=== PATIENT | male | born 1990 | race Caucasian/White ===

== ENCOUNTER 2021-07-22 11:11 | Emergency (ER) | payer OTHER, SELFPAY ==
--- NOTE | ~2021-07-22 | XR_ITS ---
EXAMINATION: XR lumbar spine 2-3V EXAM DATE: 07/22/2021 12:09 INDICATION: back pain, radiating down left leg . TECHNIQUE: Lumber spine frontal, lateral, lateral L5-S1 projections for interpretation. There is no prior study for comparison. FINDINGS: The vertebral bodies are aligned in the AP dimension. Mild L4-5 disc disease. Vertebral bod y and disc heights are otherwise well-maintained. There are no acute fractures identified. Sacrum, sa croiliac joints, sacral arcuate lines are intact. Paraspinal soft tissue is unremarkable. Mild lumbar facet arthropathy. No spondylolysis. IMPRESSION: Mild spondylosis. Reviewed, dictated and finalized at location A. S SHOP SUPERVISOR IMPRESSION: Mild spondylosis.
[2021-07-22 11:25] VITALS: BP 135/66; PULSE 79; RESP 17; TEMP 36.4; O2SAT 100
--- NOTE | 2021-07-22 11:49 | ED.BACK ---
HPI - Back Pain/Injury General Chief Complaint: Back Pain/Injury Stated Complaint: back pain Time Seen by Provider: 07/22/21 11:33 History of Present Illness HPI Narrative: 31-year-old male history of low back pain and ruptured disks presents to the emergency room with acute onset of lower back pain that radiates to the left leg. Patient admits to history of sciatica. Patient states pain is burning from gluten distally to his left heel. Denies nausea, vomiting, diarrhea, or saddle anesthesia. Related Data Allergies Allergy/AdvReac Type Severity Reaction Status Date / Time Penicillins Allergy Unknown Verified 07/22/21 11:29 Review of Systems Review of Systems: CONSTITUTIONAL: Denies fever, chills, or sweats. EYES: Denies visual changes, redness, or discharge. ENT: Denies rhinorrhea, congestion, sore throat, or otalgia. CARDIOVASCULAR: Denies chest pain, palpitations, or edema. RESPIRATORY: Denies cough or dyspnea. GASTROINTESTINAL: Denies abdominal pain, nausea, vomiting, or diarrhea. GENITOURINARY: Denies dysuria or hematuria. SKIN: Denies rash or itching. MUSCULOSKELETAL: Reports low back pain. NEUROLOGIC: Denies headache, numbness, dizziness, or weakness. Reports paresthesias left lower extremity PSYCHIATRIC: Denies anxiety or depression. Exam Narrative: GENERAL: Well-appearing, well-nourished, and in no acute distress. HEAD: Normocephalic, atraumatic. EYES: PERRLA and EOMI. ENT: Nares clear, no rhinorrhea or epistaxis. Mucous membranes moist. Oropharynx without tonsillar hypertrophy exudate or other lesions. Bilateral TMs pearly saxena nonbulging NECK: Supple. No adenopathy or masses. No carotid bruits or JVD CHEST: Clear to auscultation. No respiratory distress. No wheezes rales or rhonchi HEART: Regular rate and rhythm. No murmur heard. Normal peripheral pulses. ABDOMEN: Soft, nontender, nondistended, normal active bowel sounds. EXTREMITIES: Normal range of motion. No edema. No lumbar spine tenderness. No midline step-offs. Positive left leg lift. SKIN: Warm, dry, no rash. NEURO: No focal deficits. Alert and oriented x3. PSYCH: Normal mood and affect. Course Course Emergency Course: Lumbar spine plain films were normal for acute abnormality. Patient appears to have sciatica nerve irritation. We will send patient home with steroids and muscle relaxer. Vital Signs Vital signs: Vital Signs Temperature 36.4 C 07/22/21 11:25 Pulse Rate 79 07/22/21 11:25 Respiratory Rate 17 07/22/21 11:25 Blood Pressure 135/66 07/22/21 11:25 Pulse Oximetry 100 07/22/21 11:25 Temperature 36.4 C 07/22/21 11:25 Pulse Rate 79 07/22/21 11:25 Respiratory Rate 17 07/22/21 11:25 Blood Pressure 135/66 07/22/21 11:25 Pulse Oximetry 100 07/22/21 11:25 Discharge Plan Discharge Clinical Impression: Lumbar radiculopathy Sciatica Qualifiers: Laterality: left Qualified Code(s): M54.32 - Sciatica, left side Patient Disposition: Home, Self-Care Condition: Stable Instructions: Antibiotic Form, Sciatica (ED), Acute Low Back Pain (ED) Additional Instructions: Take medications as prescribed. Activity as tolerated. Prescriptions: New prednisone 20 mg tablet 40 mg PO DAILY Qty: 10 RF: 0 methocarbamol 750 mg tablet 750 mg PO TID Qty: 15 RF: 0 naproxen 500 mg tablet 500 mg PO BID Qty: 10 RF: 0 Follow-up/Referrals: PHYSICIAN NOT ON STAFF,NONSTAFF [Primary Care Provider] -
== END 2021-07-22 12:58 | disposition home or self-care (01) ==
PROVIDERS: Emergency Provider Nurse Practitioner Family
DX: M54.16 Radiculopathy, lumbar region (principal); M54.42 Lumbago with sciatica, left side
CPT/HCPCS: 72100; 96372; 99283; J1100

== ENCOUNTER 2024-01-17 15:59 | Emergency (ER) | payer OTHER, SELFPAY ==
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
[2024-01-17 16:19] VITALS: BP 138/89; PULSE 130; RESP 16; TEMP 36.8; O2SAT 99
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
[2024-01-17] MEDS: HYDROcodone/acetaminophen (*CRX) 5-325 MG TABLET 1 TAB PO (22:43)
[2024-01-17 22:48] VITALS: BP 139/76; PULSE 110; RESP 20; O2SAT 100
[2024-01-18 00:56] VITALS: BP 148/95; PULSE 106; RESP 16; TEMP 36.1; O2SAT 100
== END 2024-01-18 01:01 | disposition home or self-care (01) ==
PROVIDERS: Emergency Provider Student in an Organized Health Care Education/Training Program
DX: S19.9XXA Unspecified injury of neck, initial encounter (principal); S49.92XA Unspecified injury of left shoulder and upper arm, initial encounter; M54.9 Dorsalgia, unspecified; M19.012 Primary osteoarthritis, left shoulder; Y03.8XXA Other assault by crashing of motor vehicle, initial encounter
CPT/HCPCS: 70450; 71046; 72125; 72131; 73030; 99284; A4565; A9270

== ENCOUNTER 2024-09-04 08:14 | Emergency (ER) | payer OTHER, SELFPAY ==
--- OUTSIDE RECORDS SUMMARY | 2024-09-04 08:17 | XMS_ITS | Clinical Summary ---
Author Organization [facility] Address [address] [place] [address] Phone Care Team Providers Care Music Teacher Name Role Phone Lulu Briones PAC Primary Care Pro vider Allergies Active Allergy Reactions Criticality Noted Date Comments Penicillin G Other (see Comments) 02/03/2022 Pt states mother always said he was allergic but he doesn't know why so has always avoided it. Medications ketorolac (TORADOL) 10 MG Tablet Take 1 Tablet by mouth every 6 hours as needed for Mild or more severe pain. 15 Tablet 2 Active Additional Information Patient not taking.Reported on 02/04/2023 naloxone HCl (Narcan) 4 MG/0.1ML Liquid CALL 911. SPR CONTENTS OF ONE SPRAYER (0.1ML) INTO ONE NOSTRIL. REPEAT IN 2-3 MIN IF SYMPTOMS OF OPIOID EMERGENCY PERSIST, ALTERNATE NOSTRILS 2 Active HYDROcodone-acet aminophen (NORCO) 5-325 MG TabletIndication s:Back pain with left-sided sciatica Take 1-2 Tablets by mouth every 4 hours as needed for Moderate or more severe pain. 20 Tablet 2 Active HYDROcodone-acet aminophen (NORCO) 5-325 MG TabletIndication s:Acute exacerbation of chronic low back pain Take 1 Tablet by mouth every 4 hours as needed for Moderate or more severe pain. 10 Tablet 3 Active Additional Information Patient not taking.Reported on 01/23/2024 cyclobenzaprine (FLEXERIL) 10 MG Tablet Take 1 Tablet by mouth 3 times daily as needed for Muscle spasms. 30 Tablet 3 Active ibuprofen (MOTRIN) 200 MG Tablet Take 3 Tablets by mouth every 6 hours. 90 Tablet 3 Active ALPRAZolam (XANAX) 0.5 MG Tablet TAKE 1 TABLET BY MOUTH TWICE DAILY NEEDED FOR ANXIETY OR PANIC 3 Active methylPREDNISolo ne (MEDROL DOSPACK) 4 MG Tablet Therapy Pack See product package insert for dosing schedule 21 Tablet 3 Active Additional Information Patient not taking.Reported on 01/23/2024 Active Problems Problem Noted Date Diagnosed Date Chronic low back pain 02/14/2022 Encounters Date Type Department Care Team Description 09/03/2024 9:53 PM CDT - 09/04/2024 3:17 AM CDT [facility] [address] [place] [address] Discharge Disposition: LWBS 09/03/2024 Travel 07/28/2024 Documentation Only [facility] - Internal Medicine - [place] [address] [place] [address] Lulu Briones, [facility] 06/17/2024 10:28 PM MOLECULAR PATHOLOGIST - 06/18/2024 12:12 AM MOLECULAR PATHOLOGIST [facility] [address] [place] [address] Tommy Malhotra MD Acute myofascial strain of lumbar region, initial encounter Discharge Disposition: Discharged to home or Selfcare 06/17/2024 Travel from Last 3 Months Immunizations Immunization Administration Dates Next Due DTAP VACCINE 09/28/1993,10/12/1992 DTP Vaccine 1988,1988,1988 Hepatitis A Vaccine, Pediatric/adolescent, 2 Dose Schedule 12/10/2002 Hepatitis B Vaccine, Pediatric/adolescent 01/18/1999,09/26/1997,08/25/1997 Influenza Vaccine,unspecifie d Formulation 05/05/2003 MMR Vaccine 09/28/1993,08/21/1989 OPV 10/12/1992, 9,1988,1988 TD VACCINE 12/10/2002 TDAP Vaccine 05/29/2018 Family History Relation Name Status Comments Father Alive Mother Social History Tobacco Use Types Packs/Day Years Used Date Smoking Tobacco: Former Cigarettes Smokeless Tobacco: Never Tobacco Cessation:Counseling Given: No Alcohol Use Standard Drinks/Week Comments Not Currently 0 (1 standard drink = 0.6 oz pur e alcohol) social Education Answer Date Recorded What is the highest level of school you have completed or the highest degree you have received? Associate degree: occupational, technical, or vocational program 02/04/2023 Sexually Active Control Partners Comments Not Currently Sex and Gender Information Value Date Recorded Sex Assigned at Not on file Legal Sex Male 10:57 PM CDT Gender Identity Not on file Sexual Orientation Not on file Last Filed Vital Signs Vital Sign Reading Time Taken Comments Blood Pressure 120/79 09/03/2024 9:55 PM CDT Pulse 91 09/03/2024 9:55 PM CDT Temperature 36.9 C (98.5 F) 09/03/2024 9:55 PM CDT Respiratory Rate 18 09/03/2024 9:55 PM CDT Oxygen Saturation 100% 09/03/2024 9:55 PM CDT Inhaled Oxygen Concentration - - Weight 102.1 kg (225 lb) 09/03/2024 9:55 PM CDT Height 195.6 cm (6' 5 ) 09/03/2024 9:55 PM CDT Body Mass Index 26.68 09/03/2024 9:55 PM CDT Plan of Treatment Health Maintenance Due Date Last Done Comments SARS-COV-2 Immunization ( season) 2024 03/16/2021, 02/14/2021 Influenza Immunization (Season Ended) 2025 05/15/2023, 05/05/2003 DTaP/Tdap/Td Immunization (7 - Td or Tdap) 05/29/2028 05/29/2018, 12/10/2002, 09/28/1993, Additional history exists Respiratory Syncytial Virus (RSV) Immunization (Adult) (1 - 1-dose 75+ series) 2063 Hepatitis B Immunization Completed 999, 09/26/1997, 08/25/1997 Hepatitis C Virus (HCV) Screening Completed 05/08/2022, 03/18/2022 Meningococcal Immunization (ACWY) Aged Out No longer eligible based on patient's age to complete this topic Pneumococcal Immunization Combined Aged Out No longer eligible based on patient's age to complete this topic Rotavirus Immunization Aged Out No lo nger eligible based on patient's age to complete this topic Procedures Procedure Name Priority Date/Time Associated Diagnosis Comments XR LUMBAR SPINE 2 OR 3 VIEWS STAT 06/17/2024 10:38 PM MOLECULAR PATHOLOGIST HEPATITIS C ANTIBODY Routine 05/08/2022 1:36 PM MOLECULAR PATHOLOGIST STD exposure from Last 3 Months or Most Recently Relevant to Health Maintenance Results * XR LUMBAR SPINE 2 OR 3 VIEWS (06/17/2024 10:38 PM MOLECULAR PATHOLOGIST) Anatomical Region Laterality Modality Spine, L-spine N/A Digital Radiogra phy 06/17/2024 11:1 1 PM MOLECULAR PATHOLOGIST Impressions 06/17/2024 11:14 PM MOLECULAR PATHOLOGIST IMPRESSION: No acute spinal abnormality. Narrative 06/17/2024 11:14 PM MOLECULAR PATHOLOGIST EXAM DESCRIPTION: XR LUMBAR SPINE 2 OR 3 VIEWS REASON FOR STUDY: Chronic low back pain for the past 4 years, worsening 1 week ago after slipping on ice. TECHNIQUE: 3 radiographic view(s) of the lumbar spine. COMPARISON: 05/11/2022 FINDINGS: ALIGNMENT: Anatomic. VERTEBRAE: Vertebral bodies of normal height. DISCS: Moderate disc space narrowing at L3-4 and there is mild narrowing at L4-5. SOFT TISSUES: Within normal limits. THIS IS AN ELECTRONICALLY VERIFIED FINAL REPORT 06/17/2024 11:11 PM - Electronically signed by August Rosado M.D. KT: [email or web address] Report ID: [id number] Reading Location: [id number] Procedure Note August Rosado MD - 06/17/2024 EXAM DESCRIPTION: XR LUMBAR SPINE 2 OR 3 VIEWS REASON FOR STUDY: Chronic low back pain for the past 4 years, worsening 1 week ago after slipping on ice. TECHNIQUE: 3 radiographic view(s) of the lumbar spine. COMPARISON: 05/11/2022 FINDINGS: ALIGNMENT: Anatomic. VERTEBRAE: Vertebral bodies of normal height. DISCS: Moderate disc space narrowing at L3-4 and there is mild narrowing at L4-5. SOFT TISSUES: Within normal limits. THIS IS AN ELECTRONICALLY VERIFIED FINAL REPORT 06/17/2024 11:11 PM - Electronically signed by August Rosado M.D. KT: KT Report ID: [id number] Reading Location: [id number] IMPRESSION: No acute spinal abnormality. us Tommy Malhotra MD IMG DIAGNOSTIC ORDER PIERO Final Result * HEPATITIS C ANTIBODY (05/08/2022 1:36 PM MOLECULAR PATHOLOGIST) hepatitis C antibody 0.15 <1 S/CO [facility] [id number] B 05/08/2022 10:28 PM MOLECULAR PATHOLOGIST [facility] Comment: Signal/Cutoff ratio < 0.79 is Nondetected Signal/Cutoff ratio 0.80-0.99 is Grayzone Signal/Cutoff ratio > 0.99 is Detected Supplemental assays are recommended if signal/cutoff ratio is >/=1.00. Signal/cutoff ratio result >/= 5.00 is 97% predictive of positivity for recombinant immunoblot assay (RIBA) and will be reported to the [place] Department of Public Health as required. Blood Venipuncture / Unknown 05/08/2022 1:36 PM MOLECULAR PATHOLOGIST 05/08/2022 1:56 PM MOLECULAR PATHOLOGIST us Lulu Briones PAC CHEMISTRY ORDERAB LES Final Result [facility] [address] [place] [address], [place] from Last 3 Months or Most Recently Relevant to Health Maintenance Insurance MEDICAID [place] Care Teams Music Teacher Relationship Specialty Start Date End Date Lulu Briones, SHALINI [address] [place] [address] PCP - General Physician Rf Technician 02/14/22
--- OUTSIDE RECORDS SUMMARY | 2024-09-04 08:17 | XMS_ITS | Clinical Summary ---
Author Organization [facility] Address [address] [place] [address] Care Team Providers Care Retouching Operator Name Role Phone Unavailable Primary Care Provider Unavailabl e Source Comments [facility],non-owned Affiliates and Associated Physician Practices is amultiple site organization consisting of ambulatory clinics and hospital sitesin [place], [place], [place] and [place]. This disclosure is being madepursuant to the Care Everywhere program and may not contain all information available regarding this patient. 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 Gender Identity Not on file Sexual Orientation Not on file Plan of Treatment Health Maintenance Due Date Last Done Comments HIV SCREENING 2003 HEPATITIS C SCREENING 05/02/2006 DTAP/TDAP/TD VACCINES (1 - Tdap) 2007 HEPATITIS B VACCINE (1 of 3 - 19+ 3-dose series) 2007 COVID-19 VACCINE (1 - 2023-2 5 season) 2024 DEPRESSION SCREENING 05/26/2024 INFLUENZA VACCINE (Season Ended) 2025 ZOSTER VACCINE (1 of 2) 2038 HIB VACCINE Aged Out No longer eligi ble based on patient's age to complete this topic HPV VACCINE Aged Out No longer eligi ble based on patient's age to complete this topic MENINGOCOCCAL (Group B) VACC INE SHARED DECISION-MAKING Aged Out No longer eligibl e based on patient's age to complete this topic MENINGOCOCCAL GROUPS A/C/Y/W VACCINE Aged Out No longer eligible b ased on patient's age to complete this topic PNEUMOCOCCAL VACCINE Aged Out No long er eligible based on patient's age to complete this topic Insurance
--- OUTSIDE RECORDS SUMMARY | 2024-09-04 08:17 | XMS_ITS | Data Portability ---
Author Organization [facility] JUAN CARLOSUlises Address [address] [facility] [place] [address] Care Team Providers Care Supervisor Tumbling And Rolling Name Role Phone BOOGIE AGUILAR Primary Care Provider [phone] Assessment No assessment recorded. Plan of Treatment Reminders Order Date Submit Date Provider Last Modified By Organization Details Last Modified Time Details Appointments None recorde d. Lab HIV 1+2 AB + HIV 1 p24 Ag, qualita tive immunoa ssay, serum 2018 019 [facility], [address] [facility], [address], [place], [address], 9 15:14:23 RPR (rapid plasma reagin) , serum 2018 019 [facility], [address], [place], [address], 9 15:14:23 hepatit is panel (A+B+C) , acute, serum 2018 019 [facility], [address], [address], [place], [address], 9 15:14:20 CT + NG RNA, PCR, unspeci fied specime n 2018 019 [facility], [address], [address], [place], [address], 9 15:14:21 hepatit is C Ab, signal- to-cuto ff, serum or plasma 2018 019 [facility], [address], [address], [place], [address], 9 15:14:24 hsv (1+2) igg Ab, serum 2018 019 [facility], [address] [facility] [address], [address], [place], [address], 9 15:14:22 unliste d lab - complia nce drug analysi s, ur 2018 019 [facility], [address] [place] [address], [address], [place], [address], 9 06:18:30 Referral psychia trist referra l [address] [facility], [address] [place], [address], 9 10:30:09 neurosu rgery referra l 2017 018 [facility] (Neurosugery Dept), [address], [place], [address], 9 16:20:34 pain managem ent referra l 2017 018 [facility] Gilbert Bolanos, [address], [place], [address], 9 15:28:51 Procedures None recorde d. Surgeries None recorde d. Imaging MRI, lumbar spine, w/o contras t 2017 [facility], [address] [place], [address], 8 15:43:30 Medication Orders hydroxy zine HCl 50 mg tablet 2018 019 [facility] #[id number], [address] [place], [place], [id number], 9 17:42:05 buspiro ne 10 mg tablet 2018 019 [facility] #[id number], [address] [place], [place], [id number], 9 17:42:04 gabapen tin 600 mg tablet 2018 019 [facility] #69615, [address] [place], [place], [id number], 9 12:07:34 ibuprof en 800 mg tablet 2018 019 [facility] #[id number], [address] [place], [place], [id number], 9 16:14:59 buspiro ne 10 mg tablet 2018 019 [facility] #28885, [facility] [place], [place], [id number], 9 16:12:15 gabapen tin 300 mg capsule 2017 018 [facility] #46448, [address], [place], [place], [id number], 9 12:07:30 acetami nophen 300 mg-code ine 30 mg tablet 2017 018 [facility] #92001, [address], [place], [place], [id number], 9 15:32:31 Tylenol -Codein e #4 300 mg-60 mg tablet 2017 018 [facility], [address], [place], [place], [id number], 0 15:41:37 gabapen tin 600 mg tablet 2017 018 [facility] #86132, [address], [place], [place], [id number], 9 12:07:34 Patient TargetsNo targets recorded. Patient Instructions Encounter Date Encounter Id Patient Instructions Last Modified By Organization Details Last Modified Time 05/04/2018 [id number] When You Want to Lose Weight: Care Instructions jnanney Not available 05/04/2018 16:46:08 A healthy lifestyle: care instructions jnanney Not available 05/04/2018 16:46:08 06/01/2018 [id number] anxiety disorder : care instructions jnanney Not available 06/01/2018 16:11:12 06/08/2018 [id number] fu prn jnanney Not available 06/08 15:20:10 08/27/2018 [id number] anxiety disorder : care instructions jnanney Not available 08/27/2018 17:40:21 Reason for Referral Neurosurgery Referral for Gina mbar radiculopathy Referring Physician: Boogie Aguilar [facility], Encounter Date: 05/04/2018 Pain Management Referral for Lumbar radiculopathy Referring Physician: Boogie Aguilar [facility], Encounter Date: 05/04/2018 Psychiatrist Referral for Ge neralized anxiety disorder Referring Physician: Boogie Aguilar [facility], Encounter Date: 06/01/2018 Results Created Date Observation Date Name Description Value Unit Range Abnormal Flag Note LastModifiedBy Organization Detail LastModifiedTime 06/01/19 19 06/08/2018 drug scree n, urine summary report (summary) FINAL ===== ===== ===== ===== ===== ===== ===== ===== ===== ===== ===== ===== ===== === TOXAS SURE COMP DRUG LINDSAY SIS,U R ===== ===== ===== ===== ===== ===== ===== ===== ===== ===== ===== ===== ===== === Test Resul t Flag Units Drug Prese nt and Decla red for Presc ripti on Verif icati on Aceta minop hen PRESE NT EXPEC JOSE Drug Prese nt not Decla red for Presc ripti on Verif icati on Carbo xy-TH C 106 UNEXP ECTED ng/mg creat Carbo xy-TH C is a metab olite of tetra hydro canna binol (THC) . Sourc e of THC is most commo nly illic it, but THC is also prese nt in a sched uled presc ripti on medic ation . Ibupr ofen PRESE NT UNEXP ECTED Diphe nhydr amine PRESE NT UNEXP ECTED Drug Absen t but Decla red for Presc ripti on Verif icati on Codei ne Not Detec ojse UNEXP ECTED ng/mg creat Gabap entin Not Detec jose UNEXP ECTED ===== ===== ===== ===== ===== ===== ===== ===== ===== ===== ===== ===== ===== === Test Resul t Flag Units Ref Range Creat inine 651 mg/dL >=20 ===== ===== ===== ===== ===== ===== ===== ===== ===== ===== ===== ===== ===== === Decla red Medic ation s: The anastasia ing and inter preta tion on this repor t are based on the follo wing decla red medic ation s. Unexp ected resul ts may arise from inacc uraci es in the decla red medic ation s. Not e: The testi ng scope of this panel inclu terrence these medic ation s: Codei ne (Acet amino phen- Codei ne) Gabap entin Not e: The testi ng scope of this panel does not inclu de small to moder ate amoun ts of these repor jose medic ation s: Aceta minop hen (Acet amino phen- Codei ne) Not e: The testi ng scope of this panel does not inclu de follo wing repor jose medic ation s: Doxyc yclin e ===== ===== ===== ===== ===== ===== ===== ===== ===== ===== ===== ===== ===== === For clini jessica consu ltati on, pleas e call . ===== ===== ===== ===== ===== ===== ===== ===== ===== ===== ===== ===== ===== === Not Available [email or web address] [address] [facility], [place], [address], 06/09/2018 06:18:30 06/01/19 19 06/08/2018 drug scree n, urine pdf . Not Available [employer] [address] [facility], [place], [address], 06/09/2018 06:18:30 08/29/19 19 08/29/2018 hepat itis panel (A+B+ C), acute , serum hep A Ab, IgM Negati ve negati ve Not Available [facility] ([facility]) [address] [facility], [place], [address], 08/31/2018 15:14:20 08/29/19 19 08/29/2018 hepat itis panel (A+B+ C), acute , serum HBsAg screen Negati ve negati ve Not Available [facility] ([facility]) [address] [facility], [place], [address], 08/31/2018 15:14:20 08/29/19 19 08/29/2018 hepat itis panel (A+B+ C), acute , serum hep B core Ab, IgM Negati ve negati ve Not Available [facility] ([facility]) [address] [facility], [place], [address], 08/31/2018 15:14:20 08/29/19 19 08/29/2018 hepat itis panel (A+B+ C), acute , serum hep C virus Ab <0.1 s/co_ ratio 0.0-0. 9 Negat andreas: < 0.8 Indet ermin ate: 0.8 - 0.9 Posit andreas: > 0.9 The CDC recom mends that a posit andreas HCV antib sam resul t be follo wed up with a HCV Nucle ic Acid Ampli ficat ion test (5507 13). Not Available [facility] ([facility]) [address] [facility], [place], [address], 08/31/2018 15:14:20 08/29/1908/31/2018 CT + NG RNA, PCR, unspe cifie d speci men chlamydia trachomatis, ZITA Negati ve negati ve Not Available [facility] ([facility]) [address] [facility], [place], [address], 08/31/2018 15:14:21 08/29/1908/31/2018 CT + NG RNA, PCR, unspe cifie d speci men neisseria gonorrhoeae, ZITA Negati ve negati ve Not Available [facility] ([facility]) [address] [facility], [place], [address], 08/31/2018 15:14:21 08/29/19 19 08/29/2018 hsv (1+2) igg Ab, serum hsv 1 IgG, type spec 5.64 index 0.00-0 .90 above high normal Negat andreas <0.91 Equiv ocal 0.91 - 1.09 Posit andreas >1.09 Note: Negat andreas indic ates no antib odies detec jose to HSV-1 . Equiv ocal may sugge st early infec tion. If clini lorna appro priat e, retes t at later date. Posit andreas indic ates antib odies detec jose to HSV-1 . Not Available [facility] ([facility]) [address] [facility], [place], [address], 08/31/2018 15:14:22 08/29/19 19 08/29/2018 hsv (1+2) igg Ab, serum hsv 2 IgG, type spec <0.91 index 0.00-0 .90 Negat andreas <0.91 Equiv ocal 0.91 - 1.09 Posit andreas >1.09 Note: Negat andreas indic ates no antib odies detec jose to HSV-2 . Equiv ocal may sugge st early infec tion. If clini lorna appro priat e, retes t at later date. Posit andreas indic ates antib odies detec jose to HSV-2 . Not Available [facility] ([facility]) [address] [facility], [place], [address], 08/31/2018 15:14:22 08/29/1908/29/2018 RPR (rapi d plasm a reagi n), serum RPR Non Reacti ve non reacti ve Not Available [facility] ([facility]) [address] [place], [address], 08/31/2018 15:14:22 08/29/1908/29/2018 HIV 1+2 AB + HIV 1 p24 Ag, quali tativ e immun oassa y, serum HIV screen 4TH generation wrfx Non Reacti ve non reacti ve Not Available [facility] ([facility]) [address] [place], [address], 08/31/2018 15:14:23 08/29/1908/29/2018 hepat itis C Ab, signa l-to- cutof f, serum or plasm a HCV Ab <0.1 s/co_ ratio 0.0-0. 9 Not Available [facility] ([facility]) [address] [facility], [place], [address], 08/31/2018 15:14:24 08/29/19 19 08/29/2018 hepat itis C Ab, signa l-to- cutof f, serum or plasm a comment: Commen t Non react andreas HCV antib sam scree n is consi stent with no HCV infec tion, unles s recen t infec tion is suspe cted or other evide nce exist s to indic ate HCV infec tion. Not Available [facility] ([facility]) [address] [facility], [place], [address], 08/31/2018 15:14:24 08/29/19 19 09/03/2018 drug scree n, urine summary report (summary) FINAL ===== ===== ===== ===== ===== ===== ===== ===== ===== ===== ===== ===== ===== === TOXAS SURE COMP DRUG LINDSAY SIS,U R ===== ===== ===== ===== ===== ===== ===== ===== ===== ===== ===== ===== ===== === Test Resul t Flag Units Drug Prese nt and Decla red for Presc ripti on Verif icati on [place] xyzin e PRESE NT EXPEC JOSE Drug Prese nt not Decla red for Presc ripti on Verif icati on Carbo xy-TH C 304 UNEXP ECTED ng/mg creat Carbo xy-TH C is a metab olite of tetra hydro canna binol (THC) . Sourc e of THC is most commo nly illic it, but THC is also prese nt in a sched uled presc ripti on medic ation . Codei ne 87 UNEXP ECTED ng/mg creat Beals deine 108 UNEXP ECTED ng/mg creat Sourc es of codei ne inclu de sched uled presc ripti on medic ation s. Beals deine is an expec jose metab olite of codei ne. [place] codon e 80 UNEXP ECTED ng/mg creat Dihyd rocod eine 41 UNEXP ECTED ng/mg creat Norhy droco done 161 UNEXP ECTED ng/mg creat Sourc es of hydro codon e inclu de sched uled presc ripti on medic ation s. Dihyd rocod eine and norhy droco done are expec jose metab olite s of hydro codon e. Dihyd rocod eine is also avail able as a sched uled presc ripti on medic ation . Gabap entin PRESE NT UNEXP ECTED Aceta minop hen PRESE NT UNEXP ECTED Drug Absen t but Decla red for Presc ripti on Verif icati on Cyclo benza chanell Not Detec jose UNEXP ECTED Ibupr ofen Not Detec jose UNEXP ECTED Ibupr ofen, as indic ated in the decla red medic ation list, is not alway s detec jose even when used as direc jose. Napro xen Not Detec jose UNEXP ECTED ===== ===== ===== ===== ===== ===== ===== ===== ===== ===== ===== ===== ===== === Test Resul t Flag Units Ref Range Creat inine 223 mg/dL >=20 ===== ===== ===== ===== ===== ===== ===== ===== ===== ===== ===== ===== ===== === Decla red Medic ation s: The anastasia ing and inter preta tion on this repor t are based on the follo wing decla red medic ation s. Unexp ected resul ts may arise from inacc uraci es in the decla red medic ation s. Not e: The testi ng scope of this panel inclu terrence these medic ation s: Cyclo benza chanell [place] xyzin e Napro xen Not e: The testi ng scope of this panel does not inclu de small to moder ate amoun ts of these repor jose medic ation s: Ibupr ofen Not e: The testi ng scope of this panel does not inclu de follo wing repor jose medic ation s: Buspi aliya Doxyc yclin e ===== ===== ===== ===== ===== ===== ===== ===== ===== ===== ===== ===== ===== === For clini jessica consu ltati on, pleas e call [phone]. ===== ===== ===== ===== ===== ===== ===== ===== ===== ===== ===== ===== ===== === Not Available [employer] [address] [facility] [address], [place], [address], 09/03/2018 20:08:51 08/29/19 19 09/03/2018 drug scree n, urine pdf . Not Available [employer] [facility] [address] [facility], [place], [address], 09/03/2018 20:08:51 12/06/19 18 12/04/2017 XR, lumba r spine No observ ation record ed. [facility] [address] [place], [address], 12/05/2017 17:49:22 01/01/20 18 12/31/2017 MRI, lumba r spine , w/o contr ast No observ ation record ed. [address], [address], 01/21/2018 12:59:38 Result Notes None recorded. Procedures Surgical History None recorded. Imaging Results Imaging Date Name Status LastModified by Organiz ation Details LastModified Time 12/04/2017 XR, lumbar spine completed [facility] Lauren [address] [place], [address], 12/05/2017 17:49:22 12/31/2017 MRI, lumbar spine, w/o contrast completed [address], [address], 01/21/2018 12:59:38 Procedure Notes None recorded. Medical Equipment None Reported. Allergies Allergen ID Allergen Name Allergen Category Reaction Reaction Severity Criticality Documentation Date Start Date Code Code System Note Provider Name and Address Organization Details Recorded Time 42414 Product containin g penicilli n (product) medicatio n rash Not available Not available 10/09/2016 86036 8001 SNOMED Not Available Not Available Not Available Medications Name Sig Start Date Stop Date Status Note LastModified by Organization Details LastModified Time cyclobenzap rine 10 mg tablet TAKE 1 TABLET BY MOUTH THREE TIMES DAILY active Not Available Not Available No t Available amoxicillin 500 mg capsule 11/19 completed Not Available Not Available Not Available prednisone 10 mg tablet active Not Available Not Available Not Available gabapentin 600 mg tablet TAKE 1 TABLET BY MOUTH THREE TIMES DAILY*PAT IENT NEEDS APPOINTME NT* active Not Available Not Available No t Available clindamycin HCl 300 mg capsule 11/19 completed Not Available Not Available Not Available ibuprofen 800 mg tablet TAKE 1 TABLET BY MOUTH THREE TIMES DAILY active Not Available Not Available No t Available tizanidine 4 mg tablet active Not Available Not Available Not Available hydrocodone 5 mg-acetamin ophen 325 mg tablet 11/19 completed Not Available Not Available Not Available prednisone 20 mg tablet 11/19 completed Not Available Not Available Not Available hydroxyzine HCl 50 mg tablet Take 1 tablet 4 times a day by oral route for 30 days. active Not Available Not Available No t Available acetaminoph en 300 mg-codeine 30 mg tablet Take 1 tablet 4 times a day by oral route for 30 days. 06/01 completed Not Available Not Available Not Available tramadol 50 mg tablet TAKE 1 TABLET BY MOUTH EVERY 8 HOURS 07/05 completed Not Available Not Available Not Available methocarbam ol 750 mg tablet 750 mg by oral route. 11/19 completed Not Available Not Available Not Available doxycycline monohydrate 100 mg capsule 1 bid active Not Available Not Available Not Available buspirone 10 mg tablet Take 1 tablet twice a day by oral route for 30 days. active Not Available Not Available No t Available gabapentin 300 mg capsule Take 1 capsule 3 times a day by oral route for 30 days. 08/27 completed Not Available Not Available Not Available acetaminoph en 300 mg-codeine 60 mg tablet TAKE 1 TABLET BY MOUTH EVERY 8 HOURS NEEDED 07/05 completed Not Available Not Available Not Available methylpredn isolone 4 mg tablets in a dose pack 11/19 completed Not Available Not Available Not Available ketorolac 60 mg/2 mL intramuscul ar solution Inject 2 mL by intramusc ular route. 11/19 completed Not Available Not Available Not Available naproxen 500 mg tablet Take 1 tablet twice a day by oral route for 30 days. active Not Available Not Available No t Available diazepam 5 mg tablet 06/01 completed Not Available Not Available Not Available buspirone 15 mg tablet Take 1 tablet twice a day by oral route for 30 days. 11/19 completed Not Available Not Available Not Available diazepam 05/04 completed Not Available Not Available Not Available Vitals Date Recorded Body height Body mass index (BMI) Body weight Oxygen saturation Oxygen saturation in Arterial blood by Pulse oximetry Heart rate Systolic blood pressure Diastolic blood pressure Provider Name and Address Organization Details Last Updated DateTime 8 195.58 cm 26.4 kg/m2 209626. 1 g 98 % 98 % 116 /min 150 mm[Hg] 80 mm[Hg] Charlette Castillo [place] [facility] 8 18:58:05 Date Recorded Body height Body mass index (BMI) Body weight Oxygen saturation Oxygen saturation in Arterial blood by Pulse oximetry Heart rate Systolic blood pressure Diastolic blood pressure Provider Name and Address Organization Details Last Updated DateTime 8 195.58 cm 25.3 kg/m2 51930.1 7 g 98 % 98 % 84 /min 120 mm[Hg] 86 mm[Hg] Dawn Lebron MA [facility] 8 16:22:26 Date Recorded Body height Body mass index (BMI) Body weight Body temperature Oxygen saturation Oxygen saturation in Arterial blood by Pulse oximetry Heart rate Systolic blood pressure Diastolic blood pressure Provider Name and Address Organization Details Last Updated DateTime 9 195.58 cm 25.3 kg/m2 46063.1 7 g 98.2 [degF] 98 % 98 % 85 /min 124 mm[Hg] 84 mm[Hg] Charlette Castillo MA [facility] 9 15:38:04 Date Recorded Body height Body mass index (BMI) Body weight Oxygen saturation Oxygen saturation in Arterial blood by Pulse oximetry Heart rate Systolic blood pressure Diastolic blood pressure Provider Name and Address Organization Details Last Updated DateTime 9 195.58 cm 26.6 kg/m2 449508. 69 g 98 % 98 % 66 /min 130 mm[Hg] 74 mm[Hg] Dawn Lebron MA [facility] 9 15:01:46 Social History Question Answer Notes LastModified by Organizat ion Details LastModified Time Tobacco Smoking Status Current Some Day Smoker Charlette Castillo MA null, [facility] 06/01/2018 15:33:38 What Is Your Level Of Alcohol Consumption? Moderate Information not available 06/01/2018 What Is Your Level Of Caffeine Consumption? Moderate Information not available 06/01/2018 How Much Tobacco Do You Chew? None Information not available 06/01/2018 What Type Of Diet Are You Following? REGULAR Information not available 06/01/2018 Which Illicit Or Recreational Drugs Have You Used? Parish Information not available 06/01/2018 What Was The Date Of Your Most Recent Tobacco Screening? 06/08/2018 Information not available 12/17/2018 How Much Tobacco Do You Smoke? 1 PPW Information not available 06/01/2018 Sex: Unknown Functional Status None recorded. Mental Status None recorded. Family History Relationship Description Onset Age of this Age Resolved Age Notes LastModified by Organization Details LastModified Time Father Heart disease [email or web address] Not available 09/23 16:05:12 Father Myocardial infarction [email or web address] Not available 16:05:22 Medical History Condition Response Coronary Artery Disease N Other N High Blood Pressure N Atrial Fibrillation N Kidney or Bladder Problems Y Thyroid Problems N GI Problems N Depression N COPD N Blood Clots N Skin Problems N Anemia N Heart Attack ([place]) N Anxiety Disorder N Diabetes N Muscle, Joint, or Bone Problems N Seizures/Epilepsy N Acid Reflux (GERD) N Cancer N Stroke N Asthma N Allergies N High Cholesterol N Hepatitis N Liver Disease N Headaches N Heart Failure N Osteoporosis N Past Encounters Encounter ID Performer Location Encounter Start Date Encounter Closed Date Diagnosis/Indication Diagnosis SNOMED-CT Code Diagnosis ICD10 Code Diagnosis Note [id number] Boogie Aguilar PA-C [facility] [address] [place] [address] 10/09/2016 15:33:20 10/09/2016 17:13:31 Lumbar radiculopathy 305744195 M54.16 [id number] Boogie Aguilar PA-C [facility] [address] [place] [address] 10/31/2016 15:05:08 10/31/2016 15:49:20 Lumbar radiculopathy 202731731 M54.16 Anxiety 51347971 F41.9 [id number] MA [facility] [address] [place] [address] 11/19/2017 17:41:33 11/19/2017 19:17:11 Lumbago with sciatica 788936630 M54.42 Lumbar radiculopathy 128 545833 M54.16 [id number] Boogie Aguilar PA-C [facility] [address] [place] [address] 12/09/2017 18:51:16 12/09/2017 19:13:15 Lumbar radiculopathy 955330903 M54.16 [id number] Boogie Aguilar PA-C [facility] [address] [place] [address] 05/04/2018 15:34:42 05/04/2018 17:01:17 Lumbar radiculopathy 974233545 M54.16 [id number] [address] Le[address] MA [facility] [address] [place] [address] 06/01/2018 15:17:45 06/01/2018 16:39:01 Lumbar radiculopathy 424471440 M54.16 Accidental drug overdose 75930724 T50.901A Generalize d anxiety disorder 51416257 F41.1 Anxiety 69077747 F41.1 [id number] Boogie Aguilar PA-C [facility] [address] [place] [address] 06/08/2018 14:52:29 06/08/2018 15:30:14 Laceration of hand 733560774 S61.411D [id number] Boogie Aguilar PA-C [facility] [address] [place] [address] 08/27/2018 17:29:53 08/28/2018 15:19:41 Generalized anxiety disorder 58742125 F41.1 Venereal d isease screening 787360211 Z11.3 Health Concerns Section Related Observation LastModified by Organization Detai ls LastModified Time None Recorded Concern Status LastModified by Organization Details LastModified Time None Recorded Advance Directives Directive None Recorded Payers Encounter Date Sequence Insurance Name Policy Number Policy Cheng Covered Member ID Cheng Member ID Guarantor Name 12/09/2017 1 *SELF PAY* Alex jensen Canseco 05/04/2018 1 *SELF PAY* Alex jensen Canseco 06/01/2018 1 *SELF PAY* Alex jensen Canseco 06/08/2018 1 *SELF PAY* Alex Canseco 08/27/2018 1 [facility] (MEDICAID HMO) [id number] Bart Canseco [id number] Bart Canseco Notes Date Note Type Note Provider Name and Address Organization Details Recorded Time 12/09/2017 text/html tramadol not working for pain. physical therapy failed. Boogie Aguilar PA-C Attn: [address] [place], [address], [facility] 12/09/2017 19:13:21 05/04/2018 text/html follow up on sciatic pain never saw results of testing Boogie Aguilar PA-C Attn: [address] [place], [address], [facility] 05/04/2018 16:49:50 06/01/2018 text/html Went out 6 and got aggravated and unsure why. Was taking tylenol, drinking EtOH, and smoking a vape pen from a person at the bar. Unsure who that person was, but his name is Connor. States he has never gotten this aggravated before. States 2 days later was out in [employer] and again using the same vape pen - states he lost it and does not remember a lot of it, but said and did things he never would have done. Believes the vape pen may have been laced with something. Mother believes he has an anxiety issue prior to this episode, both social and general. Dawn Lebron [facility], [facility] 06/01/2018 17:36:25 06/08/2018 text/html needs sutures removed from rt hand. 10 days Boogie Aguilar PA-C Attn: Accounting,[address] [place], [address], [facility] 06/08/2018 15:25:07 08/27/2018 text/html see previous note. history of anxiety. no threats of self harm. does say he is disraught. emotional. thinks about it and gets amped up. he is freaked out because he may have been exposed to STDs. Boogie Aguilar PA-C Attn: Accounting,[address] [place], [address], [facility] 08/27/2018 17:46:20
--- OUTSIDE RECORDS SUMMARY | 2024-09-04 08:17 | XMS_ITS | Encounter Summary ---
Author Organization [facility] Address [address] [place] [address] Phone Care Team Providers Care Robotics Engineer Name Role Phone Lulu Briones PAC Primary Care Pro vider Reason for Visit * Reason Comments Back Pain Encounter Details Date Type Department Care Team (Late st Contact Info) Description 09/03/2024 9:53 PM CDT - 09/04/2024 3:17 AM CDT Emergency [facility] [address] [place] [id number] Discharge Disposition: LWBS Social History Tobacco Use Types Packs/Day Years Used Date Smoking Tobacco: Former Cigarettes Smokeless Tobacco: Never Alcohol Use Standard Drinks/Week Comments Not Currently [...] on file Sexual Orientation Not on file documented as of this encounter Last Filed Vital Signs Vital Sign Reading [...] Mass Index 26.68 09/03/2024 9:55 PM CDT documented in this encounter Medications at Time of Discharge ALPRAZolam (XANAX) 0.5 MG Tablet TAKE 1 TABLET BY MOUTH TWICE DAILY NEEDED FOR ANXIETY OR PANIC 01/22/2023 cyclobenzaprine (FLEXERIL) 10 MG Tablet Take 1 Tablet by mouth 3 times daily as needed for Muscle spasms. 30 Tablet 10/12/2022 HYDROcodone-acetam inophen (NORCO) 5-325 MG TabletIndications: Acute exacerbation of chronic low back pain Take 1 Tablet by mouth every 4 hours as needed for Moderate or more severe pain. 10 Tablet 10/12/2022 HYDROcodone-acetam inophen (NORCO) 5-325 MG TabletIndications: Back pain with left-sided sciatica Take 1-2 Tablets by mouth every 4 hours as needed for Moderate or more severe pain. 20 Tablet 05/21/2022 ibuprofen (MOTRIN) 200 MG Tablet Take 3 Tablets by mouth every 6 hours. 90 Tablet 10/12/2022 ketorolac (TORADOL) 10 MG Tablet Take 1 Tablet by mouth every 6 hours as needed for Mild or more severe pain. 15 Tablet 02/10/2022 methylPREDNISolone (MEDROL DOSPACK) 4 MG Tablet Therapy Pack See product package insert for dosing schedule 21 Tablet 02/04/2023 naloxone HCl (Narcan) 4 MG/0.1ML Liquid CALL 911. SPR CONTENTS OF ONE SPRAYER (0.1ML) INTO ONE NOSTRIL. REPEAT IN 2-3 MIN IF SYMPTOMS OF OPIOID EMERGENCY PERSIST, ALTERNATE NOSTRILS 02/14/2022 documented as of this encounter ED Notes * Fifi Chinchilla RN - 09/04/2024 3:16 AM CDT Called for patient to bring him to an ED room x2. Patient did not present. Per meter repairer helper, patient seen leaving ED. Patient left without being seen. * Sumaya Uriostegui RN - 09/03/2024 9:57 PM CDT Pt ambulatory to ED for complaint of right lower back pain that goes down his right leg. Pt denies any known injury, but does have a chronic back pain problem. Pt states that he usually sees his PCP who prescribes a muscle relaxer and pain med for the flare up episodes. Pt was unable to wait to seePCP due to pain. Pt denies any urinary symptoms. VSS. No distress noted. Pt updated on plan of care. documented in this encounter Plan of Treatment Not on file documented as of this encounter Visit Diagnoses Not on filedocumented in this encounter Care Teams Robotics Engineer Relationship Specialty Start Date End Date Lulu Briones PAC [address] [place] [address] PCP - General Physician Blood Bank Manager 02/14/22 documented as of this encounter
--- OUTSIDE RECORDS SUMMARY | 2024-09-04 08:17 | XMS_ITS | Continuity of Care Document ---
Author Organization [facility] Address [address] [place] [address] Phone Care Team Providers Care Ux Specialist Name Role Phone Lorna Corrales PT Unavailable Unavailable Procedures Procedure Date Therapeutic Activities Neuromuscular Re-Ed Therapeutic Exercise Manual Therapy Therapeutic Activities Neuromuscular Re-Ed Therapeutic Exercise Manual Therapy Therapeutic Activities Neuromuscular Re-Ed Therapeutic Exercise Manual Therapy Therapeutic Activities Neuromuscular Re-Ed Therapeutic Exercise Manual Therapy Hot or Cold Pack Therapeutic Activities Neuromuscular Re-Ed Therapeutic Exercise Hot or Cold Pack Manual Therapy PT Evaluation Moderate Complexity Therapeutic Activities Neuromuscular Re-Ed Therapeutic Exercise Manual Therapy Advance Directives Directive Yes / No Effective Date File Name No Information Encounters Encounter Description Practice Location Reason(s) For Visit Diagnoses Date Provider Providers Copied on Encounter [facility], [address], [place], [place], [id number], [place] tel:[phone] [place] No Information Savanna Rothman. . Referring Provider: [address], [place], [address]. tel:[phone], [id number], tel:[phone] [place] No Information Ashley Harrell. . Referring Provider: [address], [place], [address]. tel:[phone] [facility] [address], [id number], tel:[phone] [place] No Information Ashley Harrell. . Referring Provider: [address], [place], [address]. tel:[phone], [id number], tel:[phone] [place] No Information May Frost. [address] [place] [address], [address], [place], [facility], . tel:[phone] Referring Provider: [address], [place], [address]. tel:[phone] [facility] [address] [place] [address], [id number], tel:[phone] [place] No Information Savanna Rothman. . Referring Provider: [address], [place], [address]. tel:[phone], [id number], tel:[phone] [place] No Information Ashley Harrell. . Referring Provider: [address], [place], [address]. tel:[phone] Family History Family Member Type Diagnosis Age At Onset No Information Payers Payer name Insurance type Covered libertarian ID [place] jo[address] [place] 00 Social History Type Description Quantity Date Captured Comments Sex Male Smoking Status No Information Chief Complaint And Reason For Visit No Information Reason For Referral Reason For Referral No Information History Of Present Illness Encounter Date Complaint History Of Prese nt Illness No Information Functional Status Date Functional Assessmen t No Information Instructions Date Instruction Additional Infor mation No Information Assessments Type Assessment Date No Information Patient Care Teams Name Effective Dates (start - stop) Status Members No Information
--- OUTSIDE RECORDS SUMMARY | 2024-09-04 08:17 | XMS_ITS | Encounter Summary ---
Author Organization [employer] Care Team Providers Care Filter Tank Tender Name Role Phone Lulu Briones PAC Primary Care Pro vider Encounter Details Date Type Department Care Team (Latest Contact Info) Description 09/03/2024 Travel Social History Tobacco Use Types Packs/Day Years [...] on file documented as of this encounter Plan of Treatment Not on file documented as of this encounter Visit Diagnoses Not on filedocumented in this encounter Care Teams Filter Tank Tender Relationship Specialty Start Date End Date Lulu Briones PAC [address] [place] [address] PCP - General Physician Counsellors 02/14/22 documented as of this encounter
--- OUTSIDE RECORDS SUMMARY | 2024-09-04 08:17 | XMS_ITS | Clinical Summary ---
Author Organization [facility] Address [address] [place] [address] Care Team Providers Care Bookkeeper Assistant Name Role Phone Unavailable Primary Care Provider Unavailabl e Allergies Active Allergy Reactions Criticality Noted Date Comments Penicillins Other (See Comments) 02/03/2022 Pt states mother always said he was allergic but he doesn't know why so has always avoided it. Medications ibuprofen (MOTRIN) 200 mg tablet Take 600 mg by mouth every 6 hours as needed. 3 Active oxyCODONE (ROXICODONE) 5 mg tabletIndicatio ns:Labral tear of shoulder, left, initial encounter Take 1 Tablet (5 mg) by mouth every 4 hours as needed for Pain. Max Daily Amount Per Insurance: 4 Tablets 20 Tablet 08/04/2024 10:35 AM CDT 5 Active docusate sodium (Dulcolax Stool Softener, dss,) 100 mg capsule Take 1 Capsule (100 mg) by mouth 2 times daily. 30 Capsule 08/04/2024 10:35 AM CDT 5 Active ondansetron (ZOFRAN ODT) 4 mg Tablet, Rapid Dissolve Dissolve 1 Tablet (4 mg) on top of tongue, then swallow with saliva every 8 hours as needed for Nausea/Vomiti ng. 30 Tablet 08/04/2024 10:35 AM CDT 5 Active acetaminophen (TYLENOL) 500 mg tablet Take 1 Tablet (500 mg) by mouth every 6 hours as needed for Pain. 60 Tablet 1 08/04/2024 10:35 AM CDT 5 Active traMADoL (ULTRAM) 50 mg tabletIndicatio ns:S/P shoulder surgery Take 1 Tablet (50 mg) by mouth every 6 hours as needed for Pain. 30 Tablet Active gabapentin (Neurontin) 300 mg capsule Take 1 Capsule (300 mg) by mouth nightly as needed for Pain. 21 Capsule 08/04/2024 10:35 AM CDT 5 08/26/19 25 Active Problems Problem Noted Date Diagnosed Date Biceps tendonitis on left 07/19/2024 Encounters Date Type Department Care Team Description 08/16/2024 3:05 PM CDT Ancillary Procedure [facility] [address] [facility] [address] [place] [address] Kaleigh Bowles PA-C S/P shoulder surgery 08/16/2024 3:00 PM CDT Office Visit [facility] [address] [facility] [address] [place] [address] Kaleigh Bowles PA-C S/P shoulder surgery (Primary Dx) 08/06/2024 Orders Only [facility] [address] [address] Scanning, Provider 08/04/2024 8:45 AM CDT - 08/04/2024 9:45 AM CDT Surgery [facility] Operating Room [address] [place] [address] Tommy Mallory MD Left shoulder arthroscopy with debridement,SLAP repair, biceps tenodesis 08/04/2024 8:35 AM CDT Anesthesia Event [facility] Operating Room [address] [place] [address] Brock Renae MD Aridge, Della Louise, NP 08/04/2024 6:33 AM CDT - 08/04/2024 11:30 AM CDT Hospital Encounter [facility] Pre Procedure Phase II [address] [place] [address] Tommy Mallory MD Biceps tendonitis on left Discharge Disposition: Home or Self Care 08/03/2024 Orders Only [facility] at the [facility] [address] [place] [phone] Kaleigh Bowles PA-C Biceps tendonitis on left (Primary Dx) 07/23/2024 Prep for Surgery [facility] [id number] [place] [address] [address] [place] [phone] Tommy Mallory MD Labral tear of shoulder, left, initial encounter (Primary Dx) 07/20/2024 External Device Data STL ABSTRACTION Provider, Abstract 07/20/2024 External Device Data STL ABSTRACTION Provider, Abstract 07/20/2024 External Device Data STL ABSTRACTION Provider, Abstract 07/19/2024 1:45 PM HAM ROLLING MACHINE OPERATOR Office Visit [address] [place] [phone] Tommy Mallory MD Left shoulder pain, unspecified chronicity (Primary Dx); Labral tear of shoulder, left, initial encounter; Biceps tendonitis on left 07/19/2024 Chart Note [facility] [address] [place] [address] [address] [place] [phone] Tommy Mallory MD from Last 3 Months Social History Tobacco Use Types Packs/Day Years Used Date Smoking Tobacco: Never Smokeless Tobacco: Never Tobacco Cessation:Counseling Given: Not Answered Passive Exposure Comments:Vapor Alcohol Use Standard Drinks/Week Comments Yes 0 (1 standard drink = 0.6 oz pur e alcohol) social Feeling Safe Answer Date Recorded Are you in a relationship wi th someone who hurts you emotionally and/or physically? No 08/04/2024 Sex and Gender Information Value Date Recorded Sex Assigned at Not on file Legal Sex Male 2:48 PM HAM ROLLING MACHINE OPERATOR Gender Identity Not on file Sexual Orientation Not on file Last Filed Vital Signs Vital Sign Reading Time Taken Comments Blood Pressure 105/65 08/04/2024 10:45 AM CDT Pulse 69 08/04/2024 10:45 AM CDT Temperature 36.2 C (97.2 F) 08/04/2024 10:23 AM CDT Respiratory Rate 21 08/04/2024 10:06 AM CDT Oxygen Saturation 100% 08/04/2024 10:45 AM CDT Inhaled Oxygen Concentration - - Weight 98.1 kg (216 lb 3.2 oz) 08/04/2024 7:10 A M CDT Height 198.1 cm (6' 6 ) 08/04/2024 6:48 AM CDT Body Mass Index 24.98 08/04/2024 6:48 AM CDT Plan of Treatment Upcoming Encounters Date Type Department Care Team (Late st Contact Info) Description 09/13/2024 3:20 PM CDT Office Visit [facility] - [facility] [address] [facility] [address] [place] [phone] Kaleigh Bowles PA-C [address] [facility] [address] [place] [address] Health Maintenance Due Date Last Done Comments INFLUENZA VACCINE (#1) 2023 05/15/2023 DTAP/TDAP/TD VACCINES (7 - Td or Tdap) 05/29/2028 05/29/2018, 09/28/1993, 10/12/1992, Additional history exists HEPATITIS B VACCINES Completed 01/18/1999, 09/26/1997, 08/25/1997 HPV VACCINES Aged Out No longer eligi ble based on patient's age to complete this topic Medical Devices Implanted Type Area Experimental Machining Lab Manager Device Identifier Shelf Expiration Date Model / Serial / Lot [place] Suture 1.9mm Fibertak Biceps Ar-3670 - [id number] Implanted:Qty: 1 on 08/04/2024 by Tommy Mallory MD at [facility] Left: Shoulder [employer] 02/22/2029 AR-3670 / / [id number] [place] Suture Fibertak 1.8 Slf Punch Kntls Ar-3636 - [id number] Implanted:Qty: 2 on 08/04/2024 by Tommy Mallory MD at [facility] Left: Shoulder [employer] 04/24/2029 AR-3636 / / [id number] [place] Suture Fibertak 1.8 Slf Punch Kntls Ar-3636 - [id number] Implanted:Qty: 1 on 08/04/2024 by Tommy Mallory MD at [facility] Left: Shoulder [employer] 03/25/2029 AR-3636 / / [id number] Procedures Procedure Name Priority Date/Time Associated Diagnosis Comments XR SHOULDER 2+ VW LEFT Routine 08/16/2024 3:08 PM CDT S/P shoulder surgery PROCEDURE PHOTOGRAPHS 08/10/2024 8:44 AM CDT PROCEDURE PHOTOGRAPHS Routine 08/04/2024 4:01 PM CDT KS ANESTHESIA BLOCK PB PLACEHOLDER CHARGE Routine 08/04/2024 9:00 AM CDT KS SURGICAL ARTHROSCOPY SHOULDER REPAIR SLAP LESION 08/04/2024 8:45 AM CDT Biceps tendonitis on left Special Needs ANES GENERAL WITH INTERSCALENE BLOCK; DR BERNAL 30MIN; SLAP-BEACH CHAIR WITH SPYDER POSITIONER; [employer] FIBERTAKS; OPEN SHOULDER TRAY AVAILABLE; ULTRASLING III: ICE MACHINE; ANGELICA REDDING AND KALEIGH BOWLES TO ASSIST; NOTIFIED MAYRA [place] ANES INSERT ENDOTRACHEAL AIRWAY Routine 08/04/2024 8:43 AM CDT from Last 3 Months Results * XR SHOULDER 2+ VW LEFT (08/16/2024 3:08 PM CDT) Anatomical Region Laterality Modality Upper Extremity Computed Radiogr aphy 08/16/2024 3:10 PM CDT Impressions 08/16/2024 3:14 PM CDT IMPRESSION: 1. No acute osseous abnormality. DICTATION LOCATION: Location [address] [place] [address] 08/16/2024 3:14 PM CDT XR SHOULDER 2+ VW LEFT DATE: 08/16/2024 3:08 PM HISTORY: Postop follow-up. FINDINGS: The osseous structures are intact. The acromioclavicular and glenohumeral joints are normal. No soft tissue abnormality. Procedure Note Lane Zhou MD - 08/16/2024 XR SHOULDER 2+ VW LEFT DATE: 08/16/2024 3:08 PM HISTORY: Postop follow-up. FINDINGS: The osseous structures are intact. The acromioclavicular and glenohumeral joints are normal. No soft tissue abnormality. IMPRESSION: 1. No acute osseous abnormality. DICTATION LOCATION: Location [address] [place] [address] Kaleigh Bowles PA-C DIAGNOSTIC IMAGING ORDERAB LES Final Result * PROCEDURE PHOTOGRAPHS (08/10/2024 8:44 AM CDT) us Provider Scanning PROCEDURE/MINOR SURGICAL ORDER PIERO Final Result * PROCEDURE PHOTOGRAPHS (08/04/2024 4:01 PM CDT) us Provider Scanning PROCEDURE/MINOR SURGICAL ORDER PIERO Final Result [facility] CLIA# [id number] [facility] [address] [place] [address] * [place] ANESTHESIA BLOCK PB PLACEHOLDER CHARGE (08/04/2024 9:00 AM CDT) Narrative Lucas Iyer MD - 08/04/2024 9:00 AM CDT Lucas Iyer MD 08/04/2024 9:01 AM Patient location during procedure: Pre-op Start time: 08/04/2024 8:20 AM Reason for block: at surgeon's request and post-op pain management Staffing Performed: Anesthesiologist (/) Authorized by: Lucas Iyer MD Performed by: Lucas Iyer MD Computer Numerical Control Machinist: Latonya Ramirez RN Preanesthetic Checklist Completed: patient identified, IV checked, site marked, risks and benefits discussed, surgical consent, monitors and equipment checked, pre-op evaluation and timeout performed Hand hygiene performed prior to procedure Patient was prepped and draped in usual sterile fashion Mask worn Patient position: Supine Prep: ChloraPrep Patient monitoring: Continuous pulse oximetry, Heart rate, EKG and Non-invasive blood pressure Block Region: Upper Extremity Block Block Type: Interscalene Laterality: Left Injection technique: Single-shot Jolly Identification: ultrasound guided Skin Infiltration: Lidocaine 1% Local injected: Bupivacaine 0.5% (30cc) Needle Needle type: Short-bevel Needle gauge: 21 G Needle length: 3.5 in Needle localization: Ultrasound guidance Nerve Stimulator or Paresthesia Response Motor response or paresthesia obtained mA ms Depth (cm) Sedation Given: Patient Response: Awake Assessment Paresthesia pain: None Heart rate change: no Slow fractionated injection: yes Narrative Injections made incrementally with aspirations every (mL): 5 Events: Ultrasound image placed permanently in chart, Image stored electronically in record and no block events Lucas Iyer MD PROCEDURE/MINOR SURGICAL ORD ERABLES Final Result * KS ANES INSERT ENDOTRACHEAL AIRWAY (08/04/2024 8:43 AM CDT) Narrative Winston Godwin AA - 08/04/2024 8:43 AM CDT Winston Godwin AA 08/04/2024 9:06 AM Airway Date/Time: 08/04/2024 8:43 AM Location: OR Plan: routine intubation Patient Identity Confirmed by: Verbally with patient and armband Airway: not difficult Staffing Performed: FREIGHT CHECKER/CAA Authorized by: Brock Renae MD Performed by: Winston Godwin AA Indications and Patient Condition: Indications for Airway Management: Anesthesia Sedation Level: general anesthesia Preoxygenated: yes Patient Position: Sniffing Mask Difficulty Assessment: 1 - vent by mask Plan to extubate at end of case: Yes Final Airway Details: Final Airway Type: Endotracheal airway ETT Cuffed: Yes Cuff Volume (mL): 7 Technique Used for Successful ETT Placement: Direct laryngoscopy Devices/Methods Used in Placement: Cricoid pressure and intubating stylet Blade Type: straight blade Blade Size: 3 Insertion Site: Oral ETT Size (mm): 7.5 Measured from: Teeth ETT to Teeth (cm): 25 Tube secured with: Tape Placement Verified by: auscultation, end tidal CO2 and chest rise Cormack-Lehane Classification: Grade IIb - view of arytenoids or posterior of glottis only Number of Attempts at Approach: 1 Additional Procedure Information: atraumatic and dentition unchanged Brock Renae MD PROCEDURE/MINOR SURGICAL O RDERABLES Final Result from Last 3 Months Insurance MEDICAID [place] [employer] Commercial Advance Directives For more information, please contact: [phone] * Full Code (Latest Code Status on File) Date Activated Date Inactivated Comments 08/04/2024 6:29 AM 08/04/2024 1:35 PM
--- OUTSIDE RECORDS SUMMARY | 2024-09-04 08:17 | XMS_ITS | Referral Summary ---
Author Organization [facility] Address [address] [place] [address] Care Team Providers Care Journalism Instructor Name Role Phone Lulu Briones Primary Care Prov ider Encounters Date Type Department Care Team Description 08/26/2024 Plan of Care Documentation [facility] [place] [address] 08/26/2024 7:00 AM CDT Therapy [facility] [place] [address] Pierre Vanessa, PT S/P shoulder surgery (Primary Dx) from Last 3 Months Allergies Active Allergy Reactions Criticality Noted Date Comments Penicillins Medications sertraline (ZOLOFT) 50 mg tabletIndicatio ns:Anxiety with Depression Take 1 tablet (50 mg total) by mouth daily 30 tablet 1 05/16/2023 Active QUEtiapine (SEROquel) 25 mg tabletIndicatio ns:Depression Treatment Adjunct Take 1 tablet (25 mg total) by mouth nightly 30 tablet 1 05/15/2023 Active Active Problems Problem Noted Date Diagnosed Date Adjustment disorder with mix ed disturbance of emotions and conduct 05/14/2023 Assessment & Plan (05/14/2023 11:36 PM MICROCOMPUTER SUPPORT SPECIALIST): Related to custody and previous relationship issues. Passive SI with messages on FB. Pt states was not actually suicidal w/ no intent or plan -mgt per primary team. Assessment & Plan (05/14/2023 9:56 AM MICROCOMPUTER SUPPORT SPECIALIST): Bart has been having low mood and excessive anxiety since his girl-friend kicked him out last Dec 2021 while 3 months with their child. There has been a lot of drama regarding him calling DCFS on her, her getting a restraining order on him, a custody delacruz, him needing to get a DNA test since she had been with several other men, etc. He denies that he is suicidal, but made statements on facebook, texts, and told the police to shoot him. He said he was fristrated and angry. He is willing to start medication to help with his anxiety and irritability. Voluntary Zoloft 50mg daily for depression/anxiety Seroquel 50mg nightly for depression adjunct Med recs apprec Swer to help with dispo Routine adult health maintenance 05/14/2023 Assessment & Plan (05/14/2023 11:50 PM MICROCOMPUTER SUPPORT SPECIALIST): No specific testing needed at this time. CTM. Immunizations Immunization Administration Dates Next Due Influenza, Quadrivalent, Spl it, Preservative Free, Intramuscular 05/15/2023 Tdap 05/29/2018 Social History Tobacco Use Types Packs/Day Years Used Date Smoking Tobacco: Some Days Cigarettes Smokeless Tobacco: Never Alcohol Use Standard Drinks/Week Comments Yes 0 (1 standard drink = 0.6 oz pur e alcohol) [facility] Utilities Answer Date Recorded In the past 12 months has e [employer], gas, oil, or water [employer] threatened to shut off services in your home? Patient declined 05/14/2023 Humiliation, Afraid, Rape, and Kick questionnair e Answer Date Recorded Within the last year, have y ou been afraid of your partner or ex-partner? Patient declined 05/14/2023 Within the last year, have y ou been humiliated or emotionally abused in other ways by your partner or ex-partner? Patient declined 05/14/2023 Within the last year, have y ou been kicked, hit, slapped, or otherwise physically hurt by your partner or ex-partner? Patient declined 05/14/2023 Within the last year, have y ou been raped or forced to have any kind of sexual activity by your partner or ex-partner? Patient declined 05/14/2023 Social Connection and Isolat ion Panel [NHANES] Answer Date Recorded In a typical week, how many times do you talk on the phone with family, friends, or neighbors? More than three times a week 05/14/2023 How often do you get togethe r with friends or relatives? More than three times a week 05/14/2023 How often do you attend chur ch or religion services? Patient declined 05/14/2023 Do you belong to any clubs o r organizations such as jehovah's witness groups, unions, fraternal or athletic groups, or school groups? Patient declined 05/14/2023 How often do you attend meet ings of the clubs or organizations you belong to? Patient declined 05/14/2023 Are you , , di vorced, , never , or living with a partner? Never 05/14/2023 AUDIT-C Answer Date Recorded Q1: How often do you have a drink containing alc ohol? Patient declined 05/14/2023 Q2: How many drinks containi ng alcohol do you have on a typical day when you are drinking? Patient declined 05/14/2023 Q3: How often do you have si x or more drinks on one occasion? Patient declined 05/14/2023 Overall Financial Resource Strain (CARDIA) Answe r Date Recorded How hard is it for you to pa y for the very basics like food, housing, medical care, and heating? Patient declined 05/14/2023 [facility] - Occupational Stress Questionnaire Answer Date Recorded Do you feel stress - tense, restless, nervous, or anxious, or unable to sleep at night because your mind is troubled all the time - these days? Very much 05/14/2023 Exercise Vital Sign Answer Date Recorde d On average, how many days pe r week do you engage in moderate to strenuous exercise (like a brisk walk)? Patient declined On average, how many minutes do you engage in exercise at this level? Patient declined 05/14/2023 Hunger Vital Sign Answer Date Recorded Within the past 12 months, y ou worried that your food would run out before you got the money to buy more. Patient declined Within the past 12 months, t he food you bought just didn't last and you didn't have money to get more. Patient declined PRAPARE - Transportation Answer Date Re corded In the past 12 months, has l ack of transportation kept you from medical appointments or from getting medications? Patient declined 05/14/2023 In the past 12 months, has l ack of transportation kept you from meetings, work, or from getting things needed for daily living? Patient declined 05/14/2023 Housing Stability Vital Sign Answer Tello e Recorded In the last 12 months, was t here a time when you were not able to pay the mortgage or rent on time? Patient declined 05/14/20 23 In the last 12 months, how many places have you lived? 2 05/14/2023 In the last 12 months, was t here a time when you did not have a steady place to sleep or slept in a mcc (including now)? Patient declined 05/14/2023 Personal Safety Answer Date Recorded Have you ever been in or are you currently in a harmful physical or emotional relationship or is someone making you feel afraid or unsafe? Denies 05/14/2023 Education Answer Date Recorded What is the highest level of school you have completed or the highest degree you have received? Professional school degree (e.g., MD, DDS, DVM, VIN) 05/14/2023 Sex and Gender Information Value Date Recorded Sex Assigned at Not on file Legal Sex Male 7:51 PM MICROCOMPUTER SUPPORT SPECIALIST Gender Identity Not on file Sexual Orientation Not on file Last Filed Vital Signs Vital Sign Reading Time Taken Comments Blood Pressure 142/87 05/15/2023 9:00 AM MICROCOMPUTER SUPPORT SPECIALIST Pulse 102 05/15/2023 9:00 AM MICROCOMPUTER SUPPORT SPECIALIST Temperature 37.2 C (98.9 F) 05/15/2023 9:00 AM MICROCOMPUTER SUPPORT SPECIALIST Respiratory Rate 20 05/15/2023 9:00 AM MICROCOMPUTER SUPPORT SPECIALIST Oxygen Saturation 95% 05/15/2023 9:00 AM MICROCOMPUTER SUPPORT SPECIALIST Inhaled Oxygen Concentration - - Weight 93 kg (205 lb) 05/14/2023 12:30 AM MICROCOMPUTER SUPPORT SPECIALIST Height 198.1 cm (6' 6 ) 05/14/2023 12:30 AM MICROCOMPUTER SUPPORT SPECIALIST Body Mass Index 23.69 05/14/2023 12:30 AM MICROCOMPUTER SUPPORT SPECIALIST Plan of Treatment Not on file Insurance [facility] Advance Directives For more information, please contact: [phone] * Full Code (Latest Code Status on File) Date Activated Date Inactivated Comments 05/14/2023 12:23 AM 05/15/2023 7:25 PM Care Teams Journalism Instructor Relationship Specialty Start Date End Date Lulu Briones PA PCP - General Neurosurgery 03/21/23
--- OUTSIDE RECORDS SUMMARY | 2024-09-04 08:17 | XMS_ITS | Clinical Summary ---
Author Organization [facility] Address [address] [place] [address] Care Team Providers Care Cold Patcher Name Role Phone Lulu Briones Primary Care Prov ider Allergies Active Allergy Reactions Criticality Noted Date [...] 05/14/2023 Assessment & Plan (05/14/2023 11:36 PM WHITE METAL CORROSION PROOFER): Related to custody and previous relationship issues. Passive SI with messages on FB. Pt states was not actually suicidal w/ no intent or plan -mgt per primary team. Assessment & Plan (05/14/2023 9:56 AM WHITE METAL CORROSION PROOFER): Bart has been having low mood and [...] 05/14/2023 Assessment & Plan (05/14/2023 11:50 PM WHITE METAL CORROSION PROOFER): No specific testing needed at this time. CTM. Encounters Date Type Department Care Team Description 08/26/2024 7:00 AM CDT Therapy [facility] [place] [id number] Pierre Vanessa, PT S/P shoulder surgery (Primary Dx) 08/26/2024 Plan of Care Documentation [facility] [place] [address] [id number] from Last 3 Months Immunizations Immunization Administration Dates Next Due Influenza, Quadrivalent, Spl it, Preservative Free, Intramuscular 05/15/2023 Tdap 05/29/2018 Surgical History Surgery Date Site/Laterality Comments NO PAST SURGERIES Medical History Medical History Date Comments Kidney stones Meningitis Sciatica of left side Social History Tobacco Use Types Packs/Day Years Used Date Smoking Tobacco: Some Days Cigarettes Smokeless Tobacco: Never Alcohol Use Standard Drinks/Week Comments Yes 0 (1 standard drink = 0.6 oz pur e alcohol) [facility] Utilities Answer Date Recorded In the past 12 months has [facility] [employer], gas, oil, or water [employer] threatened to shut off services in your [...] 05/14/2023 How often do you attend chur or samaritan services? Patient declined 05/14/2023 Do you belong to any clubs o r organizations such as mandaen groups, unions, [employer] or athletic groups, or school groups? Patient [...] medical care, and heating? Patient declined 05/14/2023 [facility] Answer Date Recorded [...] place to sleep or slept in a alf (including now)? Patient declined 05/14/2023 Personal Safety [...] on file Legal Sex Male 7:51 PM WHITE METAL CORROSION PROOFER Gender Identity Not on file Sexual Orientation Not on file Obstetrics History Last Filed Vital Signs Vital Sign Reading Time Taken Comments Blood Pressure 142/87 05/15/2023 9:00 AM WHITE METAL CORROSION PROOFER Pulse 102 05/15/2023 9:00 AM WHITE METAL CORROSION PROOFER Temperature 37.2 C (98.9 F) 05/15/2023 9:00 AM WHITE METAL CORROSION PROOFER Respiratory Rate 20 05/15/2023 9:00 AM WHITE METAL CORROSION PROOFER Oxygen Saturation 95% 05/15/2023 9:00 AM WHITE METAL CORROSION PROOFER Inhaled Oxygen Concentration - - Weight 93 kg (205 lb) 05/14/2023 12:30 AM WHITE METAL CORROSION PROOFER Height 198.1 cm (6' 6 ) 05/14/2023 12:30 AM WHITE METAL CORROSION PROOFER Body Mass Index 23.69 05/14/2023 12:30 AM WHITE METAL CORROSION PROOFER Plan of Treatment Health Maintenance Due Date Last Done Comments Depression Screening 1988 Hepatitis C Screening 1988 Varicella Vaccines (1 of 2 - 13+ 2-dose series) 2001 Regular Well Visit/Exam 18-64 2006 Pneumococcal vaccine <65 (1 of 2 - PCV) 2007 Covid-19 Vaccine (3 - season) 2024 03/16/2021, 02/14/2021 Influenza Vaccine (Season Ended) 2025 05/15/2023, 05/05/2003 DTaP/Tdap/Td Vaccine (7 - Td or Tdap) 05/29/2028 05/29/2018, 12/10/2002, 09/28/1993, Additional history exists Hepatitis B Screening Completed 01/18/1999 , 09/26/1997, 08/25/1997 HPV Vaccines Aged Out No longer eligi ble based on patient's age to complete this topic Insurance [facility] Advance Directives For more information, please contact: [phone] * Full Code (Latest Code Status on File) Date Activated Date Inactivated Comments 05/14/2023 12:23 AM 05/15/2023 7:25 PM Care Teams Cold Patcher Relationship Specialty Start Date End Date Lulu Briones PA PCP - General Neurosurgery 03/21/23
--- OUTSIDE RECORDS SUMMARY | 2024-09-04 08:20 | XMS_ITS | Continuity of Care Document ---
Author Organization [facility] Address [address] [place] [address] Phone Care Team Providers Care Ferry Terminal Supervisor Name Role Phone Lorna Corrales PT Unavailable [...] Diagnoses Date Provider Providers Copied on Encounter [facility], [address], [place], [place], [id number], [place] tel:[phone] Puneet No Information Savanna Rothman. . Referring Provider: [address], [place], [address]. tel:[phone], [id number], tel:[phone] Puneet No Information Ashley Harrell. . Referring Provider: [address], [place], [address]. tel:[phone] [facility] [address], [id number], tel:[phone] [place] No Information Ashley Harrell. . Referring Provider: [address], [place], [address]. tel:[phone], [id number], tel:[phone] Corn No Information May Frost. [address] [place] [address], [address], [place], [facility], . tel:[phone] Referring Provider: [address], [place], [address]. tel:[phone] [facility] [address] [place] [address], [id number], tel:[phone] Puneet No Information Savanna Rothman. . Referring Provider: [address], [place], [address]. tel:[phone], [id number], tel:[phone] [place] No Information Ashley Harrell. . Referring Provider: [address], [place], [address]. tel:[phone] Family History Family Member Type Diagnosis Age At Onset No Information Payers Payer name Insurance type Covered alliance party ID [place] [address] [place] 00 Social [...]
[2024-09-04 08:21] VITALS: BP 120/74; PULSE 94; RESP 16; TEMP 37.1; O2SAT 98
--- NOTE | 2024-09-04 09:06 | ED_ITS ---
HPI - General Adult General Chief complaint: Back Pain/Injury Stated complaint: Back Pain Source: patient Mode of arrival: ambulatory Limitations: no limitations History of Present Illness HPI narrative: Pt presents for evaluation of low back pain since yesterday. He has a history of herniated discs in his lumbar spine. 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 He states the pain is constant, 10/10 in severity, with radiation down the posterior aspect of the right lower extremity. He has some numbness in the right lower back but denies saddle anesthesia, bladder/bowel incontinence. He has not taken any medication to assist with his symptoms. His current pain is consistent with pain experienced with similar bouts of exacerbation of low back pain. In the past hydrocodone and flexeril have been effective. Related Data Home Medications ?Medication ?Instructions ?Recorded ?Confirmed ?Last Taken ?Type tramadol 50 mg tablet mg 09/04/24 Unknown History Allergies Allergy/AdvReac Type Severity Reaction Status Date / Time Penicillins Allergy Unknown Verified 09/04/24 08:39 Review of Systems Review of Systems: CONSTITUTIONAL: Denies fever, chills, or sweats. EYES: Denies visual changes, redness, or discharge. ENT: Denies rhinorrhea, congestion, sore throat, or otalgia. CARDIOVASCULAR: Denies chest pain, palpitations, or edema. RESPIRATORY: Denies cough or dyspnea. GASTROINTESTINAL: Denies abdominal pain, nausea, vomiting, or diarrhea. GENITOURINARY: Denies dysuria or hematuria. BACK: Reports right lower back pain with radiation into the posterior aspect of the right lower extremity SKIN: Denies rash or itching. MUSCULOSKELETAL: Denies back pain, joint pain, or myalgia. NEUROLOGIC: Reports numbness in right lower back. Denies headache, numbness, dizziness, or weakness. PSYCHIATRIC: Denies anxiety or depression. [facility] Past Medical History Medical History No pertinent past medical history Surgical History Surgical History History of repair of rotator cuff Family History Family History Mother Family history non-contributory Social History Social History Gender identity (if verbalized by the patient): Male Spiritual care concerns: No Exam Narrative: GENERAL: Well-appearing, well-nourished, and in no acute distress. HEAD: Normocephalic, atraumatic. EYES: PERRLA and EOMI. ENT: Nares clear, no rhinorrhea or epistaxis. Mucous membranes moist. Oropharynx without tonsillar hypertrophy exudate or other lesions. Bilateral TMs pearly saxena nonbulging NECK: Supple. No adenopathy or masses. No carotid bruits or JVD CHEST: Clear to auscultation. No respiratory distress. No wheezes rales or rhonchi HEART: Regular rate and rhythm. No murmur heard. Normal peripheral pulses. ABDOMEN: Soft, nontender, nondistended, normal active bowel sounds. BACK: There is mild tenderness noted over the right SI joint EXTREMITIES: Normal range of motion. No edema. SKIN: Warm, dry, no rash. NEURO: No focal deficits. Alert and oriented x3. PSYCH: Normal mood and affect. Course Course Emergency Course: This is a 34 yr old male who presented for evaluation of right lower back pain. No recent traumatic injury to warrant imaging and his current pain is consistent with pain he has experienced in the past with bouts of low back pain exacerbation. He has responded well to hydrocodone, flexeril and anti-inf lammatories in the past. Will dc with flexeril, medrol dose cj and hydrocodone. Hydrocodone script would not send electronically so he was provided with paper script. He was advised to follow up with primary provider. Go to the ER for worsening symptoms. Pt in agreement with plan of care. Level of Care: Express Care Visit Vital Signs Vital signs: Vital Signs Temperature 37.1 C 09/04/24 08:21 Pulse Rate 94 09/04/24 08:21 Respiratory Rate 16 09/04/24 08:21 Blood Pressure 120/74 09/04/24 08:21 Pulse Oximetry 98 09/04/24 08:21 Oxygen Delivery Room Air 09/04/24 08:21 Temperature 37.1 C 09/04/24 08:21 Pulse Rate 94 09/04/24 08:21 Respiratory Rate 16 09/04/24 08:21 Blood Pressure 120/74 09/04/24 08:21 Pulse Oximetry 98 09/04/24 08:21 Oxygen Delivery Room Air 09/04/24 08:21 Medical Decision Making Vital Signs Vital Signs: Vital Signs Temperature 37.1 C 09/04/24 08:21 Pulse Rate 94 09/04/24 08:21 Respiratory Rate 16 09/04/24 08:21 Blood Pressure 120/74 09/04/24 08:21 Pulse Oximetry 98 09/04/24 08:21 Oxygen Delivery Room Air 09/04/24 08:21 Temperature 37.1 C 09/04/24 08:21 Pulse Rate 94 09/04/24 08:21 Respiratory Rate 16 09/04/24 08:21 Blood Pressure 120/74 09/04/24 08:21 Pulse Oximetry 98 09/04/24 08:21 Oxygen Delivery Room Air 09/04/24 08:21 Discharge Plan Discharge Clinical Impression: Right sided sciatica Patient Disposition: Home Condition: Stable Instructions: Antibiotic Form, Sciatica (ED) Patient Language: Occitan Prescriptions: New cyclobenzaprine 10 mg tablet 10 mg PO TID PRN (Reason: muscle spasm) Qty: 15 0RF methylprednisolone [Medrol (Cj)] 4 mg tablets,dose pack See Rx Instructions .ROUTE .COMPLEX Qty: 21 0RF Rx Instructions: for 6 days No Action tramadol 50 mg tablet Follow-up/Referrals: Anali,SHARIFA Lawson [Primary Care Provider] - Stand Alone Forms: Work/School Release IP Time of Disposition: 08:52
== END 2024-09-04 08:53 | disposition home or self-care (01) ==
PROVIDERS: Emergency Provider Nurse Practitioner; PCP Physician Assistant
DX: M54.31 Sciatica, right side (principal); Z79.891 Long term (current) use of opiate analgesic
CPT/HCPCS: 99213; G0463

== ENCOUNTER 2024-11-29 08:06 | Emergency (ER) | payer OTHER, SELFPAY ==
--- NOTE | 2024-11-29 08:09 | ED.GENADULT ---
HPI - General Adult General Chief complaint: Upper Respiratory Infection Stated complaint: Abdominal Pain/Vomiting/Sore Throat Time Seen by Provider: 11/29/24 08:20 Source: patient, RN notes reviewed and old records reviewed Mode of arrival: ambulatory Limitations: no limitations History of Present Illness HPI narrative: 34-year-old male presents to the [facility] with 1 day history of sore throat, vomiting yesterday x2. Had some epigastric pressure while vomiting. No treatment prior to arrival. Denies fevers. Onset (ago): day(s) (1) Treatments prior to arrival: none Related Data Allergies Allergy/AdvReac Type Severity Reaction Status Date / Time Penicillins Allergy Unknown Verified 09/04/24 08:39 Review of Systems Review of Systems: All systems reviewed & are unremarkable except as noted in HPI and below Constitutional: Constitutional: Reports no additional constitutional complaints ENT: Reports as per HPI and Reports sore throat Cardiovascular: Cardiovascular: Reports no additional cardiovascular complaints, Denies chest pain and Denies dyspnea Respiratory: Respiratory: Reports no additional respiratory complaints, Denies chest congestion, Denies cough and Denies dyspnea Gastrointestinal: Gastrointestinal: Reports as per HPI Musculoskeletal: Musculoskeletal: Reports no additional musculoskeletal complaints Integumentary/Breasts: Skin/Breast: Reports system reviewed and no additional complaints, except as docu PMFSH Past Medical History Medical History No pertinent past medical history Surgical History Surgical History History of repair of rotator cuff Family History Family History Mother Family history non-contributory Social History Social History Gender identity (if verbalized by the patient): Male Spiritual care concerns: No Comments At the time of my signature, I reviewed and agree with the nursing past medical, surgical, social, and family history. There is no relevant family history pertinent to the patient complaint. Exam Const: General: cooperative, healthy appearing, comfortable, no acute distress, well developed, alert and well nourished Nutritional Appearance: well nourished Orientation/consciousness: patient oriented x3 Limitations: no limitations HENMT: Head: normal to inspection Ears: hearing grossly normal bilaterally, external ears normal, TM's normal bilaterally, EAC's normal, mastoids normal and no periauricular adenopathy Mouth: Yes Normal oral and palatal mucosa present, Yes lip normal, Yes tongue normal and Yes moist mucous membranes Throat: posterior oropharynx normal, uvula midline and no uvular edema Eyes: General: appearance normal, both eyes and all related structures Alignment and Position: alignment normal Neck: Neck: normal visual inspection, full ROM, no lymphadenopathy and no meningeal signs Chest: Chest palpation & inspection: normal inspection of the chest Resp: Effort & Inspection: normal respiratory effort and able to speak in complete sentences Auscultation: clear to auscultation bilaterally, no crackles, no rales, no rhonchi and no wheezes Cardio: Rate: regular rate GI: GI Palp: No abdominal tenderness Auscultation: normal bowel sounds Skin: General skin exam: normal color and no rashes or lesions noted Neuro: General: patient oriented x3, gait normal, moves all extremities and no meningeal signs Cognition (Neuro): normal cognition Speech: normal speech Gait exam (Neuro): Normal gait present Extrem: General: normal to inspection, full ROM, capillary refill normal and normal gait Psych: Appearance: grossly normal and well kempt Mental Status: mental status grossly normal Speech and movement: Normal speech and movement present and Clear speech present Affect: normal affect Attitude: cooperative Course Course Level of Care: Express Care Visit Vital Signs Vital signs: Vital Signs Temperature 98.2 F 11/29/24 08:10 Pulse Rate 102 H 11/29/24 08:10 Respiratory Rate 11/29/24 08:10 Blood Pressure 148/84 H 11/29/24 08:10 Pulse Oximetry 98 11/29/24 08:10 Oxygen Delivery Room Air 11/29/24 08:10 Temperature 98.2 F 11/29/24 08:10 Pulse Rate 102 H 11/29/24 08:10 Respiratory Rate 11/29/24 08:10 Blood Pressure 148/84 H 11/29/24 08:10 Pulse Oximetry 98 11/29/24 08:10 Oxygen Delivery Room Air 11/29/24 08:10 Reviewed Medical Decision Making MDM Narrative Medical decision making narrative: Patient sitting comfortably in exam room. Nontoxic, vitals stable. Patient in no acute distress Patient presents with concerns for strep throat, 1 day history of a sore throat. Strep test negative, culture sent no acute findings noted on exam patient appropriate for outpatient treatment with close Discharge instructions reviewed with patient, as well as provided in writing per nursing staff. The instructions also include specific and strict return/GO TO THE ER as well as f/u information. All questions have been answered, and the patient deny any further questions with discharge and discharge plan. Some parts of this dictation were generated by voice recognition software and may contain typographical and/or grammatical inaccuracies. Differential Diagnosis Differential Diagnosis: strep, URI, viral pharyngitis, allergies, epigastric discomfort, nausea vomiting. Gastroenteritis Medical Records Medical records reviewed: Yes I reviewed the external patient's medical records. Vital Signs Vital Signs: Vital Signs Temperature 98.2 F 11/29/24 08:10 Pulse Rate 102 H 11/29/24 08:10 Respiratory Rate 20 11/29/24 08:10 Blood Pressure 148/84 H 11/29/24 08:10 Pulse Oximetry 98 11/29/24 08:10 Oxygen Delivery Room Air 11/29/24 08:10 Temperature 98.2 F 11/29/24 08:10 Pulse Rate 102 H 11/29/24 08:10 Respiratory Rate 20 11/29/24 08:10 Blood Pressure 148/84 H 11/29/24 08:10 Pulse Oximetry 98 11/29/24 08:10 Oxygen Delivery Room Air 11/29/24 08:10 Reviewed Lab Data Lab results reviewed: Yes I reviewed the patient's lab results. Labs: Lab Results 11/29/24 Range/Units 08:16 POC Grp A Strep Screen Negative (Negative) Reviewed Critical Care Time Critical Care Time Critical Care Time: No Discharge Plan Discharge Clinical Impression: Epigastric discomfort Pharyngitis Qualifiers: Pharyngitis/tonsillitis etiology: unspecified etiology Qualified Code(s): J02.9 - Acute pharyngitis, unspecified Patient Disposition: Home Condition: Stable Instructions: Antibiotic Form, Pharyngitis (ED) Additional Instructions: Your rapid strep swab was negative today at [facility]. A throat culture will be sent to the laboratory for further testing. If the test is positive, you will receive a phone call within 48 hours and an appropriate antibiotic will be initiated at that time. keep your diet very simple. Nothing fried, greasy, spicy or highly processed for 72 hours. Increase your fluid intake to include water, Gatorade, Pedialyte, ice pops in Jell- O. Nothing caffeinated carbonated or alcoholic. It is very important to treat your symptoms. Drink plenty of water, Gatorade, Pedialyte, ice pops or Jell-O. -Alternate Tylenol and Motrin per package directions for fever or pain. You can alternate every 4 hours -Antihistamine medication such as Zyrtec/Claritin/Angela during the day can help improve symptoms. -Eat and drink things that are easy to swallow, like tea or soup, or popsicles. -Oral rinses such as: Salt water gargles and/or may use topical anesthetic (eg. Chloraseptic spray) or lozenges to relieve dryness or throat pain). -Frequent hand washing or hand forest landscape ecology professor is one of the best ways to prevent spread of infection. -Using a vaporizer or humidifier at night will also help thin secretions and help with coughing up phlegm. -Follow up with primary care provider in 7-10 days if condition is not improving - For new or worsening symptoms go directly to the nearest ER Patient Language: Slovenian Follow-up/Referrals: Anali,SHARIFA Lawson [Primary Care Provider] - 2 Weeks ( [facility] follow[facility]) Stand Alone Forms: Work/School Release IP Time of Disposition: 08:31
--- OUTSIDE RECORDS SUMMARY | 2024-11-29 08:09 | XMS_ITS | Clinical Summary ---
Author Organization [facility] Address [address] [place] [address] Care Team Providers Care Public Information Director Name Role Phone Lulu Briones Primary Care [...] 05/14/2023 Assessment & Plan (05/14/2023 11:36 PM BRUSH HAND): Related to custody and previous relationship issues. Passive SI with messages on FB. Pt states was not actually suicidal w/ no intent or plan -mgt per primary team. Assessment & Plan (05/14/2023 9:56 AM BRUSH HAND): Bart has been having low mood and [...] 05/14/2023 Assessment & Plan (05/14/2023 11:50 PM BRUSH HAND): No specific testing needed at this time. CTM. Encounters Date Type Department Care Team Description 11/04/2024 1:00 PM CDT Therapy [facility] [place] [address] Pierre Medina, PT S/P shoulder surgery (Primary Dx) 10/27/2024 2:30 PM CDT Therapy [facility] [place] [address] Pierre Medina, PT S/P shoulder surgery (Primary Dx) 10/20/2024 1:00 PM CDT Therapy [facility] [place] [address] Pierre Medina, PT S/P shoulder surgery (Primary Dx) 10/05/2024 1:00 PM CDT Therapy [facility] [place] [address] Pierre Medina, PT S/P shoulder surgery (Primary Dx) 09/28/2024 1:00 PM CDT Therapy [facility] [place] [address] Pierre Medina, PT S/P shoulder surgery (Primary Dx) 09/21/2024 8:30 AM CDT Therapy [facility] [place] [address] Pierre Medina, PT S/P shoulder surgery (Primary Dx) 09/09/2024 7:00 AM CDT Therapy [facility] Physical Therapy [facility] [place] [address] Rosana Rosario, PT S/P shoulder surgery (Primary Dx) from Last 3 Months Immunizations Immunization Administration [...] drink = 0.6 oz pur e alcohol) [facility] Utilities Answer Date Recorded In the past 12 months has e [employer], gas, oil, or water [employer] threatened to shut off services in your [...] often do you attend chur ch or restoration services? Patient declined 05/14/2023 Do you belong to any clubs o r organizations such as restoration groups, unions, fraternal or athletic groups, or [...] medical care, and heating? Patient declined 05/14/2023 [facility] - Occupational Stress Questionnaire Answer [...] place to sleep or slept in a nursing home (including now)? Patient declined 05/14/2023 Personal Safety [...] on file Legal Sex Male 7:51 PM BRUSH HAND Gender Identity Not on file Sexual Orientation Not on file Obstetrics History Last Filed Vital Signs Vital Sign Reading Time Taken Comments Blood Pressure 142/87 05/15/2023 9:00 AM BRUSH HAND Pulse 102 05/15/2023 9:00 AM BRUSH HAND Temperature 37.2 C (98.9 F) 05/15/2023 9:00 AM BRUSH HAND Respiratory Rate 20 05/15/2023 9:00 AM BRUSH HAND Oxygen Saturation 95% 05/15/2023 9:00 AM BRUSH HAND Inhaled Oxygen Concentration - - Weight 93 kg (205 lb) 05/14/2023 12:30 AM BRUSH HAND Height 198.1 cm (6' 6) 05/14/2023 12:30 AM BRUSH HAND Body Mass Index 23.69 05/14/2023 12:30 AM BRUSH HAND Plan of Treatment Health Maintenance Due Date Last Done Comments Depression Screening 1988 Hepatitis C Screening 1988 Varicella Vaccines (1 of 2 - 13+ 2-dose series) 2001 Regular Well Visit/Exam 18-64 2006 Pneumococcal vaccine <65 (1 of 2 - PCV) 2007 Covid-19 Vaccine (3 - season) 2024 03/16/2021, 02/14/2021 Influenza Vaccine (#1) 2025 05/15/2023, 2002 DTaP/Tdap/Td Vaccine (7 - Td or Tdap) 05/29/2028 05/29/2018, 12/10/2002, 09/28/1993, Additional history exists Hepatitis B Screening Completed 01/18/1999 , 09/26/1997, 08/25/1997 HPV Vaccines Aged Out No longer eligi ble based on patient's age to complete this topic Insurance [facility] Advance Directives For more information, please contact: [phone] * Full Code (Latest Code Status on File) Date Activated Date Inactivated Comments 05/14/2023 12:23 AM 05/15/2023 7:25 PM Care Teams Public Information Director Relationship Specialty Start Date End Date Lulu Briones PA PCP - General Neurosurgery 03/21/23
--- OUTSIDE RECORDS SUMMARY | 2024-11-29 08:09 | XMS_ITS | Clinical Summary ---
Author Organization [facility] Address [address] [place] [address] Care Team Providers Care President [employer] Name Role Phone Unavailable Primary Care Provider Unavailabl e Allergies Active Allergy Reactions Criticality Noted Date Comments Penicillins Other (See Comments) 02/03/2022 Pt states mother always said he was allergic but he doesn't know why so has always avoided it. Medications ibuprofen (MOTRIN) 200 mg tablet Take 600 mg by mouth every 6 hours as needed. 10/12/2022 Active oxyCODONE (ROXICODONE) 5 mg tabletIndicatio ns:Labral tear of shoulder, left, initial encounter Take 1 Tablet (5 mg) by mouth every 4 hours as needed for Pain. Max Daily Amount Per Insurance: 4 Tablets 20 Tablet 08/04/2024 10:35 AM CDT 08/04/2024 Active docusate sodium (Dulcolax Stool Softener, dss,) 100 mg capsule Take 1 Capsule (100 mg) by mouth 2 times daily. 30 Capsule 08/04/2024 10:35 AM CDT 08/04/2024 Active ondansetron (ZOFRAN ODT) 4 mg Tablet, Rapid Dissolve Dissolve 1 Tablet (4 mg) on top of tongue, then swallow with saliva every 8 hours as needed for Nausea/Vomiti ng. 30 Tablet 08/04/2024 10:35 AM CDT 08/04/2024 Active acetaminophen (TYLENOL) 500 mg tablet Take 1 Tablet (500 mg) by mouth every 6 hours as needed for Pain. 60 Tablet 1 08/04/2024 10:35 AM CDT 08/04/2024 Active traMADoL (ULTRAM) 50 mg tabletIndicatio ns:S/P shoulder surgery Take 1 Tablet (50 mg) by mouth every 6 hours as needed for Pain. 30 Tablet 08/17/2024 Active Active Problems Problem Noted Date Diagnosed Date Biceps tendonitis on left 07/19/2024 Encounters Date Type Department Care Team Description 11/23/2024 External Device Data STL ABSTRACTION Provider, Abstract 10/25/2024 1:20 PM CDT Office Visit [facility] [address] [facility] [address] [place] [address] Kaleigh Ventura PA-C S/P shoulder surgery (Primary Dx) 09/13/2024 3:20 PM CDT Office Visit [facility] [address] [facility] [address] [place] [address] Kaleigh Ventura PA-C S/P shoulder surgery (Primary Dx) from Last 3 Months Social History Tobacco [...] on file 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 Gender Identity Not on file Sexual Orientation [...] A M CDT Height 198.1 cm (6' 6) 08/04/2024 6:48 AM CDT Body Mass Index 24.98 08/04/2024 6:48 AM CDT Plan of Treatment Upcoming Encounters Date Type Department Care Team (Late st Contact Info) Description 12/20/2024 1:20 PM CDT Office Visit [facility] - [facility] [address] [facility] [address] [place] [address] Kaleigh Ventura PA-C [address] [facility] [address] [place] [address] Health Maintenance Due Date Last Done Comments Pre-Diabetes and Diabetes Screening 1988 INFLUENZA VACCINE (#1) 2024 05/15/2023 DTAP/TDAP/TD VACCINES (7 - Td or Tdap) 05/29/2028 05/29/2018, 09/28/1993, 10/12/1992, Additional history exists HEPATITIS B VACCINES Completed 01/18/1999, 09/26/1997, 08/25/1997 HPV VACCINES Aged Out No longer eligi ble based on patient's age to complete this topic Medical Devices Implanted Type Area Line Out Worker Device Identifier Shelf Expiration Date Model / Serial / Lot Henning Suture 1.9mm Fibertak Biceps Ar-3670 - [id number] Implanted:Qty: 1 on 08/04/2024 by Tommy Mallory MD at [facility] Left: Shoulder [employer] 02/22/2029 AR-3670 / / [id number] Henning Suture Fibertak 1.8 Slf Punch Kntls Ar-3636 - [id number] Implanted:Qty: 2 on 08/04/2024 by Tommy Mallory MD at [facility] Left: Shoulder [employer] 04/24/2029 AR-3636 / / [id number] Henning Suture Fibertak 1.8 Slf Punch Kntls Ar-3636 - [id number] Implanted:Qty: 1 on 08/04/2024 by Tomym Mallory MD at [facility] Left: Shoulder [employer] 03/25/2029 AR-3636 / / [id number] Insurance [place] RX [employer] SCRIPTS Commercial Advance Directives For more information, please contact: [phone] * Full Code (Latest Code Status on File) Date Activated Date Inactivated Comments 08/04/2024 6:29 AM 08/04/2024 1:35 PM
--- OUTSIDE RECORDS SUMMARY | 2024-11-29 08:09 | XMS_ITS | Clinical Summary ---
Author Organization [facility] Address [address] [place] [address] Phone Care Team Providers Care Naval Aircrewman Mechanical Name Role Phone Lulu Briones PAC Primary [...] 09/04/2024 3:17 AM CDT Emergency [facility] Emergency [address] [place] [id number] Discharge Disposition: LWBS 09/03/2024 Travel from Last 3 Months Immunizations Immunization [...] 9:55 PM CDT Height 195.6 cm (6' 5) 09/03/2024 9:55 PM CDT Body Mass Index 26.68 09/03/2024 9:55 PM CDT Plan of Treatment Health Maintenance Due Date Last Done Comments Human Papillomavirus (HPV) Immunization (1 - Male 3-dose series) 2003 SARS-COV-2 Immunization ( season) 2024 03/16/2021, 02/14/2021 [...] Procedure Name Priority Date/Time Associated Diagnosis Comments HEPATITIS C ANTIBODY Routine 05/08/2022 1:36 PM DICTATING TRANSCRIBING MACHINE SERVICER STD exposure from Last 3 Months or Most Recently Relevant to Health Maintenance Results * HEPATITIS C ANTIBODY (05/08/2022 1:36 PM DICTATING TRANSCRIBING MACHINE SERVICER) hepatitis C antibody 0.15 <1 S/[facility] [id number] B 05/08/2022 10:28 PM DICTATING TRANSCRIBING MACHINE SERVICER [facility] Comment: Signal/Cutoff ratio < 0.79 is Nondetected Signal/Cutoff ratio 0.80-0.99 is Grayzone Signal/Cutoff ratio > 0.99 is Detected Supplemental assays are recommended if signal/cutoff ratio is >/=1.00. Signal/cutoff ratio result >/= 5.00 is 97% predictive of positivity for recombinant immunoblot assay (RIBA) and will be reported to the [place] [facility] as required. Blood Venipuncture / Unknown 05/08/2022 1:36 PM DICTATING TRANSCRIBING MACHINE SERVICER 05/08/2022 1:56 PM DICTATING TRANSCRIBING MACHINE SERVICER us Lulu Briones PAC CHEMISTRY ORDERAB LES Final Result Performing Organization Address City/State/[facility] Co de Phone Number [facility] [address] [place] [address], from Last 3 Months or Most Recently Relevant to Health Maintenance Insurance [place] Care Teams Naval Aircrewman Mechanical Relationship Specialty Start Date End Date Lulu Briones PAC [address] [place] [address] PCP - General Physician Cardiology Nurse 02/14/22
--- OUTSIDE RECORDS SUMMARY | 2024-11-29 08:09 | XMS_ITS | Referral Summary ---
Author Organization [facility] Address [address] [place] [address] Care Team Providers Care Internet Marketing Manager Name Role Phone Lulu Briones Primary Care Prov ider Encounters Date Type Department Care Team Description 11/04/2024 1:00 PM CDT Therapy [facility] [place] [address] Pierre Medina, PT S/P shoulder surgery (Primary Dx) 10/27/2024 2:30 PM CDT Therapy [facility] [place] [address] Pierre Medina, PT S/P shoulder surgery (Primary Dx) 10/20/2024 1:00 PM CDT Therapy [facility] [place] [address] Pierre Medina, PT S/P shoulder surgery (Primary Dx) 10/05/2024 1:00 PM CDT Therapy [facility] [place] [address] Pierre Medina, PT S/P shoulder surgery (Primary Dx) 09/28/2024 1:00 PM CDT Therapy [facility] [place] [address] Pierre Medina, PT S/P shoulder surgery (Primary Dx) 09/21/2024 8:30 AM CDT Therapy [facility] [place] [address] Pierre Medina, PT S/P shoulder surgery (Primary Dx) 09/09/2024 7:00 AM CDT Therapy [facility] [place] [address] Rosana Rosario, PT S/P shoulder surgery (Primary [...] 05/14/2023 Assessment & Plan (05/14/2023 11:36 PM HEAD MEN'S GOLF COACH): Related to custody and previous relationship issues. Passive SI with messages on FB. Pt states was not actually suicidal w/ no intent or plan -mgt per primary team. Assessment & Plan (05/14/2023 9:56 AM HEAD MEN'S GOLF COACH): Bart has been having low mood and [...] 05/14/2023 Assessment & Plan (05/14/2023 11:50 PM HEAD MEN'S GOLF COACH): No specific testing needed at this time. CTM. Immunizations Immunization Administration Dates Next Due Influenza, Quadrivalent, Spl it, Preservative Free, Intramuscular 05/15/2023 Tdap 05/29/2018 Social History Tobacco Use Types Packs/Day Years Used Date Smoking Tobacco: Some Days Cigarettes Smokeless Tobacco: Never Alcohol Use Standard Drinks/Week Comments Yes 0 (1 standard drink = 0.6 oz pur e alcohol) [facility] Utilities Answer Date Recorded In the past 12 months has e [employer], oil, or water [employer] threatened to shut off services in your [...] often do you attend chur ch or voodoo services? Patient declined 05/14/2023 Do you belong to any clubs o r organizations such as latter-day groups, unions, fraternal or athletic groups, or [...] medical care, and heating? Patient declined 05/14/2023 [facility] Occupat ional [facility] - Occupational Stress Questionnaire Answer Date Recorded [...] place to sleep or slept in a longterm (including now)? Patient declined 05/14/2023 Personal Safety [...] on file Legal Sex Male 7:51 PM HEAD MEN'S GOLF COACH Gender Identity Not on file Sexual Orientation Not on file Last Filed Vital Signs Vital Sign Reading Time Taken Comments Blood Pressure 142/87 05/15/2023 9:00 AM HEAD MEN'S GOLF COACH Pulse 102 05/15/2023 9:00 AM HEAD MEN'S GOLF COACH Temperature 37.2 C (98.9 F) 05/15/2023 9:00 AM HEAD MEN'S GOLF COACH Respiratory Rate 20 05/15/2023 9:00 AM HEAD MEN'S GOLF COACH Oxygen Saturation 95% 05/15/2023 9:00 AM HEAD MEN'S GOLF COACH Inhaled Oxygen Concentration - - Weight 93 kg (205 lb) 05/14/2023 12:30 AM HEAD MEN'S GOLF COACH Height 198.1 cm (6' 6) 05/14/2023 12:30 AM HEAD MEN'S GOLF COACH Body Mass Index 23.69 05/14/2023 12:30 AM HEAD MEN'S GOLF COACH Plan of Treatment Not on file Insurance [facility] Advance Directives For more information, please contact: [phone] * Full Code (Latest Code Status on File) Date Activated Date Inactivated Comments 05/14/2023 12:23 AM 05/15/2023 7:25 PM Care Teams Internet Marketing Manager Relationship Specialty Start Date End Date Lulu Briones PA PCP - General Neurosurgery 03/21/23
--- OUTSIDE RECORDS SUMMARY | 2024-11-29 08:09 | XMS_ITS | Clinical Summary ---
Author Organization [facility] Address [address] [address] Care Team Providers Care Axle Polisher Name Role Phone Unavailable Primary Care Provider Unavailabl e Source Comments [facility],non-owned Affiliates and Associated Physician Practices is amultiple site organization consisting of ambulatory clinics and hospital sitesin [place], [place], [place] and [place]. This disclosure is being madepursuant to the Care Everywhere program and may not contain all information available regarding this patient. 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
--- OUTSIDE RECORDS SUMMARY | 2024-11-29 08:09 | XMS_ITS | Data Portability ---
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 Plan of Treatment Reminders Order Date Submit Date Provider Last Modified By Organization Details Last Modified Time Details Appointments None recorde d. Lab HIV 1+2 AB + HIV 1 p24 Ag, qualita tive immunoa ssay, serum 2018 019 [facility], [address], [place], [address], 9 15:14:23 RPR (rapid plasma reagin) , serum 2018 019 [facility], [address], [address], [place], [address], 9 15:14:23 hepatit is panel (A+B+C) , acute, serum 2018 019 [facility], [address], [address], [place], [address], 9 15:14:20 CT + NG RNA, PCR, unspeci fied specime n 2018 019 [facility], [address], [address], [place], [address], 9 15:14:21 hepatit is C Ab, signal- to-cuto ff, serum or plasma 2018 019 [facility], [address], [address], [place], [address], 9 15:14:24 hsv (1+2) igg Ab, serum 2018 019 [place] [facility], [address] [facility] [address], [address], [place], [address], 9 15:14:22 unliste d lab - complia nce drug analysi s, ur 2018 019 [place] [facility], [address] [facility], [address], [place], [address], 9 06:18:30 Referral psychia trist referra l 2018 019 [facility] Sebastián Herman MD, [address] [place], [address], 9 10:30:09 neurosu rgery referra l 2017 018 [facility] (Neurosugery Dept), [address], [place], [address], 9 16:20:34 pain managem ent referra l 2017 018 [facility] Gilbert Bolaons, [address], [address], [place], [address], 9 15:28:51 Procedures None recorde d. Surgeries None recorde d. Imaging MRI, lumbar spine, w/o contras t 2017 018 [facility]) Scheduling, [address] [place], [address], 8 15:43:30 Medication Orders hydroxy zine HCl 50 mg tablet [address] [id number], [address] [place], [place], [id number], 9 17:42:05 buspiro ne 10 mg tablet [address] [facility] #71120, [address] [place], [place], [id number], 9 17:42:04 gabapen tin 600 mg tablet 2018 019 [facility]26843, [address], [place], [id number], 9 12:07:34 ibuprof en 800 mg tablet [address] [facility] #60250, [address], [place], [id number], 9 16:14:59 buspiro ne 10 mg tablet [address] [facility]08823, [address] [place] [address], [id number], 9 16:12:15 gabapen tin 300 mg capsule 2017 018 [facility] #58531, [address], [place], [place], [id number], 9 12:07:30 acetami nophen 300 mg-code ine 30 mg tablet 2017 018 [facility] #24956, [address], [place], [place], [id number], 9 15:32:31 Tylenol -Codein e #4 300 mg-60 mg tablet 2017 018 [facility]37921, [address], [place], [place], [id number], 0 15:41:37 gabapen tin 600 mg tablet 2017 018 sdevriesma [facility] #30496, [address], [place], [place], [id number], 9 12:07:34 Patient TargetsNo targets recorded. Patient Instructions Encounter Date Encounter Id Patient Instructions Last Modified By Organization Details Last Modified Time 05/04/2018 [id number] When You Want to Lose Weight: Care Instructions jnanney Not available 05/04/2018 16:46:08 A healthy lifestyle: care instructions jnanney Not available 05/04/2018 16:46:08 06/01/2018 [id number] anxiety disorder : care instructions jnanney Not available 06/01/2018 16:11:12 06/08/2018 [id number] fu prn jnanney Not available 06/08 15:20:10 08/27/2018 [id number] anxiety disorder : care instructions jnanney Not available 08/27/2018 17:40:21 Reason for Referral Neurosurgery Referral for Gina mbar radiculopathy Referring Physician: Boogie Aguilar [facility], Encounter Date: 05/04/2018 Pain Management Referral for Lumbar radiculopathy Referring Physician: Boogie Aguilar [facility], Encounter Date: 05/04/2018 Psychiatrist Referral for Ge neralized anxiety disorder Referring Physician: Boogie Aguilar [facility], Encounter Date: 06/01/2018 Results Created [...] Verif icati on Codei ne Not Detec jose UNEXP ECTED ng/mg creat Gabap entin Not [...] ===== ===== ===== ===== === Not Available [facility] [address] [facility] [place], [address], 06/09/2018 06:18:30 06/01/19 19 06/08/2018 drug scree n, urine pdf . Not Available [facility] [address] [facility] [place], [address], 06/09/2018 06:18:30 08/29/19 19 08/29/2018 hepat itis panel (A+B+ C), acute , serum hep A Ab, IgM Negati ve negati ve Not Available [facility] ([facility]) [address] [facility], [place], [address], 08/31/2018 15:14:20 08/29/19 19 08/29/2018 hepat itis panel (A+B+ C), acute , serum HBsAg screen Negati ve negati ve Not Available [facility] ([facility]) [address] [facility], [place], [address], 08/31/2018 15:14:20 08/29/19 19 08/29/2018 hepat itis panel (A+B+ C), acute , serum hep B core Ab, IgM Negati ve negati ve Not Available [facility] ([facility]) [address] [facility], [place], [address], 08/31/2018 15:14:20 08/29/19 19 08/29/2018 hepat itis [...] test (5507 13). Not Available [facility] ([facility]) [address] [facility], [place], [address], 08/31/2018 15:14:20 08/29/1908/31/2018 CT + NG RNA, PCR, unspe cifie d speci men chlamydia trachomatis, ZITA Negati ve negati ve Not Available [facility] ([facility]) [address] [facility], [place], [address], 08/31/2018 15:14:21 08/29/1908/31/2018 CT + NG RNA, PCR, unspe cifie d speci men neisseria gonorrhoeae, ZITA Negati ve negati ve Not Available [facility] ([facility]) [address] [facility], [place], [address], 08/31/2018 15:14:21 08/29/19 19 08/29/2018 hsv (1+2) [...] to HSV-1 . Not Available [facility] ([facility]) [address] [facility], [place], [address], 08/31/2018 15:14:22 08/29/19 19 08/29/2018 hsv (1+2) [...] to HSV-2 . Not Available [facility] ([facility]) [address] [facility], [place], [address], 08/31/2018 15:14:22 08/29/19 19 08/29/2018 RPR (rapi d plasm a reagi n), serum RPR Non Reacti ve non reacti ve Not Available [facility] ([facility]) [address] [place], [address], 08/31/2018 15:14:22 08/29/19 19 08/29/2018 HIV 1+2 AB + HIV 1 p24 Ag, quali tativ e immun oassa y, serum HIV screen 4TH generation wrfx Non Reacti ve non reacti ve Not Available [facility] ([facility]) [address] [place], [address], 08/31/2018 15:14:23 08/29/19 19 08/29/2018 hepat itis C Ab, signa l-to- cutof f, serum or plasm a HCV Ab <0.1 s/co_ ratio 0.0-0. 9 Not Available [facility] ([facility]) [address] [facility], [place], [address], 08/31/2018 15:14:24 08/29/19 19 08/29/2018 hepat itis C Ab, signa l-to- cutof f, serum or plasm a comment: Commen t Non react andreas HCV antib sam scree n is consi stent with no HCV infec tion, unles s recen t infec tion is suspe cted or other evide nce exist s to indic ate HCV infec tion. Not Available [facility] ([facility]) [address] [facility], [place], [address], 08/31/2018 15:14:24 08/29/1909/03/2018 drug scree n, urine summary report (summary) FINAL ===== ===== ===== ===== ===== ===== ===== ===== ===== ===== ===== ===== ===== === TOXAS SURE COMP DRUG LINDSAY SIS,U R ===== ===== ===== ===== ===== ===== ===== ===== ===== ===== ===== ===== ===== === Test Resul t Flag Units Drug Prese nt and Decla red for Presc ripti on Verif icati on [place] xyzin e PRESE NT EXPEC JOSE Drug [...] Codei ne 87 UNEXP ECTED ng/mg creat [place] deine 108 UNEXP ECTED ng/mg creat Sourc es of codei ne inclu de sched uled presc ripti on medic ation s. [place] deine is an expec jose metab olite of codei ne. [place] codon e 80 UNEXP ECTED ng/mg creat [...] these medic ation s: Cyclo benza chanell [place] xyzin e Napro xen Not e: The [...] jessica consu ltati on, pleas e call [phone]. ===== ===== ===== ===== ===== ===== ===== ===== ===== ===== ===== ===== ===== === Not Available [facility] [address] [facility], [place], [address], 09/03/2018 20:08:51 08/29/19 19 09/03/2018 drug scree n, urine pdf . Not Available [facility] [address] [facility], [place], [address], 09/03/2018 20:08:51 12/06/19 18 12/04/2017 XR, lumba r spine No observ ation record ed. [facility] [address] [place], [address], 12/05/2017 17:49:22 01/01/20 18 12/31/2017 MRI, lumba r spine , w/o contr ast No observ ation record ed. [facility] [address] [place], [address], 01/21/2018 12:59:38 Result Notes None recorded. Medical Equipment None Reported. Allergies Allergen ID Allergen Name Allergen Category Reaction Reaction Severity Criticality Documentation Date Start Date Code Code System Note Provider Name and Address Organization Details Recorded Time 48078 Product containin g penicilli n (product) medicatio n rash Not available Not available 10/09/2016 83930 8001 SNOM[facility] NINO [place] [facility] 7 16:04:45 Medications Name Sig Start Date Stop Date [...] blood by Pulse oximetry Heart rate Systolic And Diastolic Provider Name and Address Organization Details Last Updated DateTime 9 195.58 cm 25.3 kg/m2 69859.1 7 g 98.2 [degF] 98 % 98 % 85 /min 124/84 mm[Hg] Charlette Castillo MA [facility] 9 15:38:04 Date Recorded Body height Body mass index (BMI) Body weight Oxygen saturation Oxygen saturation in Arterial blood by Pulse oximetry Heart rate Systolic And Diastolic Provider Name and Address Organization Details Last Updated DateTime 9 195.58 cm 26.6 kg/m2 914448. 69 g 98 % 98 % 66 /min 130/74 mm[Hg] Dawn Lebron MA [facility] 9 15:01:46 Date Recorded Body height Body mass index (BMI) Body weight Oxygen saturation Oxygen saturation in Arterial blood by Pulse oximetry Heart rate Systolic And Diastolic Provider Name and Address Organization Details Last Updated DateTime 8 195.58 cm 26.4 kg/m2 553122. 1 g 98 % 98 % 116 /min 150/80 mm[Hg] Charlette Castillo MA [facility] 8 18:58:05 Date Recorded Body height Body mass index (BMI) Body weight Oxygen saturation Oxygen saturation in Arterial blood by Pulse oximetry Heart rate Systolic And Diastolic Provider Name and Address Organization Details Last Updated DateTime 8 195.58 cm 25.3 kg/m2 32511.1 7 g 98 % 98 % 84 /min 120/86 mm[Hg] Dawn Lebron [place] [facility] 8 16:22:26 Social History Question Answer Notes LastModified by Organizat ion Details LastModified Time Tobacco Smoking Status Current Some Day Smoker Charlette Castillo [place] null, [place] [facility] 06/01/2018 15:33:38 What Is Your Level Of Caffeine Consumption? Moderate Information not available 06/01/2018 How Much Tobacco Do You Chew? None Information not available 06/01/2018 What Type Of Diet Are You Following? REGULAR Information not available 06/01/2018 Which Illicit Or Recreational Drugs Have You Used? [place] Information not available 06/01/2018 What Was The Date Of Your Most Recent Tobacco Screening? 06/08/2018 Information not available 12/17/2018 How Much Tobacco Do You Smoke? 1 PPW Information not available 06/01/2018 Sex: Unknown Functional Status Question Answer Note LastModified by Organization D etails LastModified Time What is your level of alcohol consumption? Moderate Information not available 06/01/2018 Mental Status None recorded. Family History Relationship Description Onset Age of this Age Resolved Age Notes LastModified by Organization Details LastModified Time Father Heart disease [email or web address] Not available 09/23 16:05:12 Father Myocardial infarction [email or web address] Not available 16:05:22 Medical History Condition Response Coronary Artery Disease N Other N Atrial Fibrillation N High Blood Pressure N Kidney or Bladder Problems Y Thyroid Problems N GI Problems N Depression N COPD N Blood Clots N Skin Problems N Anemia N Heart Attack ([place]) N Anxiety Disorder N Diabetes N Muscle, Joint, or Bone Problems N Seizures/Epilepsy N Acid Reflux (GERD) N Cancer N Stroke N Asthma N Allergies N High Cholesterol N Hepatitis N Liver Disease N Headaches N Heart Failure N Osteoporosis N Past Encounters Encounter ID Performer Location Encounter Start Date Encounter Closed Date Diagnosis/Indication Diagnosis SNOMED-CT Code Diagnosis ICD10 Code Diagnosis Note [id number] Corbin Ndiaye MD [facility] [address] [place] [address] 10/09/2016 15:33:20 10/09/2016 17:13:31 Lumbar radiculopathy 099193043 M54.16 [id number] Corbin Ndiaye MD [facility] [address] [place] [address] 10/31/2016 15:05:08 10/31/2016 15:49:20 Lumbar radiculopathy 889497745 M54.16 Anxiety 97378401 F41.9 [id number] Corbin Ndiaye MD [facility] [address] [place] [address] 11/19/2017 17:41:33 11/19/2017 19:17:11 Lumbago with sciatica 408956494 M54.42 Lumbar radiculopathy 128 071018 M54.16 [id number] Corbin Ndiaye MD [facility] [address] [place] [address] 12/09/2017 18:51:16 12/09/2017 19:13:15 Lumbar radiculopathy 687578660 M54.16 [id number] Boogie Aguilar PA-C [facility] [address] [place] [address] 05/04/2018 15:34:42 05/04/2018 17:01:17 Lumbar radiculopathy 226701973 M54.16 [id number] Boogie Aguilar PA-C [facility] [address] [place] [address] 06/01/2018 15:17:45 06/01/2018 16:39:01 Lumbar radiculopathy 158509066 M54.16 Accidental drug overdose 35787797 T50.901A Generalize d anxiety disorder 62829546 F41.1 Anxiety 90139170 F41.1 [id number] Boogie Aguilar PA-C [facility] [address] [place] [address] 06/08/2018 14:52:29 06/08/2018 15:30:14 Laceration of hand 743068505 S61.411D [id number] Boogie Aguilar PA-C [facility] [address] [place] [address] 08/27/2018 17:29:53 08/28/2018 15:19:41 Generalized anxiety disorder 60818341 F41.1 Venereal d isease screening 953203090 Z11.3 Health Concerns Section Related Observation LastModified by Organization Detai ls LastModified Time None Recorded Concern Status LastModified by Organization Details LastModified Time None Recorded Advance Directives Directive None Recorded Payers Insurance Date Sequence Insurance Name Policy Number Policy Cheng Covered Member ID Cheng Member ID Guarantor Name 03/21/2019 [place] [facility] [id number] [facility] 03/21/2019 [facility] (MEDICAID HMO) [id number] [facility] [id number] [facility] 07/22/2018 1 [facility] (MEDICAID HMO) [id number] [facility] [id number] [facility] 12/09/2017 1 [facility] (MEDICAID HMO) [id number] [facility] [id number] [facility] 07/22/2018 1 *SELF PAY* [facility] Notes Date Note Type Note Provider Name and Address Organization Details Recorded Time 12/09/2017 text/html tramadol not working for pain. physical therapy failed. Boogie Aguilar PA-C Attn: [address] [place], [address], [facility] [place] 12/09/2017 19:13:21 05/04/2018 text/html follow up on sciatic pain never saw results of testing Boogie Aguilar PA-C Attn: [address] [place], [address], [facility] 05/04/2018 16:49:50 06/01/2018 text/html Went out 8 and got aggravated and unsure why. Was taking tylenol, drinking EtOH, and smoking a vape pen from a person at the bar. Unsure who that person was, but his name is Connor. States he has never gotten this aggravated before. [facility] 2 days later was out in [place] and again using the same vape pen - states he lost it and does not remember a lot of it, but said and did things he never would have done. Believes the vape pen may have been laced with something. Mother believes he has an anxiety issue prior to this episode, both social and general. Dawn Lebron MA [facility] 06/01/2018 17:36:25 06/08/2018 text/html needs sutures removed from rt hand. 10 days Boogie Aguilar PA-C Attn: Accounting,[address] [facility], [place], [address], [facility] [place] 06/08/2018 15:25:07 08/27/2018 text/html see previous note. history of anxiety. no threats of self harm. does say he is disraught. emotional. thinks about it and gets amped up. he is freaked out because he may have been exposed to STDs. Boogie Aguilar PA-C Attn: Accounting,[address] [facility], [place], [address], [facility] [place] 08/27/2018 17:46:20
[2024-11-29 08:10] VITALS: BP 148/84; PULSE 102; RESP 20; TEMP 36.8; O2SAT 98
[2024-11-29 08:27] LABS: EDSTREPNEGPOS1 Negative (Negative)
== END 2024-11-29 08:40 | disposition home or self-care (01) ==
PROVIDERS: Emergency Provider Nurse Practitioner; PCP Physician Assistant
DX: R10.13 Epigastric pain (principal); J02.9 Acute pharyngitis, unspecified
CPT/HCPCS: 87081; 87880; 99213; G0463